=== PATIENT | female | born 1945 | race African-American/Black ===

== ENCOUNTER 2017-10-20 09:24 | Inpatient (IN) | payer OTHER ==
[~2017-10-20] VITALS: Ht 157.5 cm; Wt 44.7 kg
--- NOTE | ~2017-10-20 | P ---
[facility] Michelle Rodrí[place] [address] PROCEDURE REPORT Name: MATEO GARCIA Room #: 208-P ADM IN M.R.#: [id number] Admission: 10/20/17 Attend Phys: Sharan Frank MD Discharge: Date of : 43 Report #: [id number] THIS REPORT FOR: //name// CC: Castillo Aragon MD [facility] FAM unknown Karlos Frank DATE OF SERVICE: 10/24/2017 PROCEDURE PERFORMED: Upper endoscopy. HISTORY OF PRESENT ILLNESS: The patient is a 72-year-old female with a history of coronary artery disease, CVA, pacemaker and admitted on 10/20/2017 with chest pain. She was noted to have a hemoglobin of 9.0 on admission. She was taking aspirin and was on Coumadin as she has a mitral valve replacement. Her hemoglobin has been dropping from admission to 7.7 today, which was what it was yesterday. She has had no stools in the last 3 days. We have attempted Hemoccult testing, but again she has not had a bowel movement. She denies any obvious bright red blood per rectum or melena. She was taking Protonix at home prior to this admission. Denies any hematemesis. Plan is for upper endoscopy. Last colonoscopy per her daughter was approximately 5-8 years ago and reportedly negative. I do not have a copy of these results. DESCRIPTION OF PROCEDURE: The risks and benefits of the procedure were explained to the patient, those risks including but not limited to bleeding, perforation, and the risk of sedation. She understood these risks and gave informed consent. Sedation was given using propofol per Anesthesia. Next, using a standard Olympus upper endoscope, the scope was placed in the patient's mouth and advanced under direct vision through the esophagus, stomach and into the second portion of the duodenum. The esophagus was normal throughout. 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 No evidence of esophagitis. There was a mild gastritis in the gastric body. Again, unable to take biopsies for H. pylori, but no evidence of blood, ulcerations or erosions. The pylorus was normal and patent. The duodenal bulb, first and second portion were all normal. The scope was then withdrawn and the procedure terminated. The patient tolerated the procedure well. IMPRESSION: 1. Mild gastritis. 2. 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 3. Otherwise, normal upper endoscopy. RECOMMENDATIONS: We will discuss options with Dr. Aragon, likely not proceed with colonoscopy at this time. We will still await stool Hemoccult testing. [address] [address] PROCEDURE REPORT Name: MATEO GARCIA Room #: 208-P [facility] IN M.R.#: [id number] Admission: 10/20/17 Attend Phys: Sharan Frank MD Discharge: Date of : 43 Report #: [id number] Continue PPI therapy and monitoring. Thank you for allowing me to participate in her care. <ELECTRONICALLY SIGNED> By: Otto Banerjee MD 10/24/172008 1206 1809 Otto Banerjee MD /nt
--- NOTE | ~2017-10-20 | HC ---
[facility] Michelle Rodrí[place] [address] CONSULTATION Name: RADHAMATEO Room #: 208-P ADM IN M.R.#: [id number] Admission: 10/20/17 Attend Phys: Sharan Frank MD Discharge: Date of : 43 Report #: [id number] THIS REPORT FOR: //name// CC: FAM unknown Sharan Frank REASON FOR CONSULTATION: Elevated creatinine. REASON FOR THE PRESENTATION: Chest pain. HISTORY OF PRESENT ILLNESS: A 72-year-old with extensive past medical history including coronary artery disease, sick sinus syndrome post permanent pacemaker, hypertension, and chronic kidney disease. She presented with chest pain, radiating to her left arm. No aggravating factors; however, the pain got relieved by morphine and nitroglycerin. I am not really sure about her previous medical history of coronary artery disease; however, it is mentioned that she does have coronary artery disease and had a mitral valve mechanical valve replacement. She is maintained on Coumadin. No nausea or vomiting. No lightheadedness. No shortness of breath. No fever or chills. On presentation to the Emergency Room yesterday, she was found to have an elevated troponin at 5.2 and was described as chronic kidney disease with a creatinine of 2.1 that had risen up to 2.4 this morning. Cardiac workup is being pursued. I am being asked to evaluate for her chronic kidney disease. The patient herself is not really sure if she has ever been told or diagnosed to have chronic kidney disease. Looking through her previous medical records and specifically back in 2014, she had creatinine values anywhere from 1.8-2. Her previous UAs or urinalysis in 2015 have revealed +1 protein. There is an abdominal CT that was done back in 03/2014 and this revealed dominant cyst arising from the right kidney with small bilateral renal calculi. PAST MEDICAL HISTORY: Extensive and includes the followin. Hypertension. 2. Chronic kidney disease. 3. Post mitral valve replacement. 4. Coronary artery disease. 5. Post pacemaker insertion. 6. Long-term anticoagulant. 7. Mitral regurgitation. 8. Left ventricular hypertrophy. 9. Cardiomyopathy with ejection fractions of around 40% back in 2014. 10. Gout. 11. Hypertension. 12. Dyslipidemia. PAST SURGICAL HISTORY: 1. Mitral valve prosthesis. 2. Pacemaker insertion. [facility] [address] [place] [address] CONSULTATION Name: MATEO GARCIA Room #: 208-P [facility] IN .R.#: [id number] Admission: 10/20/17 Attend Phys: Sharan Frank MD Discharge: Date of : 43 Report #: [id number] 3. Appendectomy 30 years ago. 4. Heart catheterization. FAMILY HISTORY: Significant for hypertension. No known chronic kidney disease in the family. MEDICATIONS: Aspirin, amlodipine, losartan, pantoprazole, carvedilol, hydrochlorothiazide, atorvastatin, hydralazine. SOCIAL HISTORY: She is a nonsmoker. No drug or alcohol abuse. REVIEW OF SYSTEMS: GENERAL: No fever or chills. CARDIOVASCULAR: As per the history of present illness. PULMONARY: No cough or hemoptysis. GASTROINTESTINAL: No nausea or vomiting. GENITOURINARY: No frequency, no urgency. MUSCULOSKELETAL: No back pain, no morning stiffness. SKIN: No rash or ulcerations. PHYSICAL EXAMINATION: GENERAL: She is alert, oriented, in no apparent distress. VITAL SIGNS: Blood pressure on presentation was extremely elevated at 217/90. This is down to 140/60 this morning. She is afebrile, temperature is 36.7, pulse rate is 71 and regular. HEAD AND NECK: No jugular venous distention. CHEST: Decreased air entry bilaterally, but no crackles present. CARDIOVASCULAR: Regular with no rub. ABDOMEN: Soft, nontender. LOWER EXTREMITIES: No edema. LABORATORY DATA: Laboratory values reviewed. Creatinine was up to 2.4 this morning from 2.1 yesterday. Troponin has peaked at 12.3 this morning. Hemoglobin is 8.3. INR is 2.3. There is no UA available. ASSESSMENT, IMPRESSION AND PLAN: 1. Chronic kidney disease. 2. Acute kidney injury with worsening of the creatinine due to the reduction in her blood pressure. 3. Status post mitral valve prosthesis. 4. Hypertension. 5. Hyperlipidemia. 6. She does have evidence of chronic kidney disease based on her previous values. She is now presenting with acute coronary syndrome symptoms. I would continue with the current medical care right now, including all of the appropriate medications for her coronary artery disease. The rise in the [facility] [address] [place] [address] CONSULTATION Name: MATEO GARCIA Room #: 208-P [facility] IN M.R.#: [id number] Admission: 10/20/17 Attend Phys: Sharan Frank MD Discharge: Date of : 43 Report #: [id number] creatinine is likely related to the drop in the blood pressure and the changes in the kidneys hemodynamics. I will initiate basic chronic kidney disease workup to evaluate her kidneys. 7. Strict input and output. 8. Avoid nephrotoxins. 9. The issue that will come up during this presentation is whether she is okay to proceed with the cardiac catheterization given her acute kidney injury and the possibility of contrast-induced nephropathy. I will discuss those with the Cardiology team. By: 0719 1311 Anne-Marie Vidal MD /nt
--- NOTE | ~2017-10-20 | HC ---
[facility] [place] [address] CONSULTATION Name: MATEO GARCIA Room #: 208-P ADM IN M.R.#: [id number] Admission: 10/20/17 Attend Phys: Sharan Frank MD Discharge: Date of : 43 Report #: [id number] THIS REPORT FOR: //name// CC: FAM unknown Sharan Frank DATE OF SERVICE: 10/25/2017 HISTORY OF PRESENT ILLNESS: This patient is a 72-year-old black female 10, para 10, menopausal for many years, though she cannot remember the exact age. She was admitted to the hospital on 10/20/2017 with symptoms of chest pain and a past medical history of stroke, coronary artery disease, mitral valve replacement, hypertension, hyperlipidemia, and pacemaker placement. Gynecology has been consulted due to her history of postmenopausal bleeding since late August of 2017, which began soon after she was restarted on anticoagulants for her mitral valve replacement history. She was seen in August at the [facility] and referred to the [facility], but has not been seen there. The patient denies any previous vaginal bleeding. Denies any abdominal or pelvic pain, change in bowel habits, abdominal distention. PAST MEDICAL HISTORY ALLERGIES: CODEINE causes HALLUCINATIONS. MEDICATIONS: Amlodipine, acetaminophen, aspirin, atorvastatin, carvedilol, docusate sodium, heparin, hydralazine, intravenous iron supplements, losartan, nitroglycerin, ondansetron, pantoprazole, polyethylene glycol, sertraline. MEDICAL ILLNESSES AND DISEASES: Severe anemia with a hemoglobin varying from 7.9-8.4 during this hospitalization, etiology uncertain, though the patient has a possible history of gastrointestinal bleed and a fairly good history of postmenopausal bleeding; history of mechanical mitral valve replacement; acute renal failure; history of cerebrovascular accident; history of non-ST elevated myocardial infarction; history of hypomagnesemia; history of gout; history of gastroesophageal reflux disease; history of congestive heart failure; history of hyperlipidemia. PAST SURGICAL HISTORY: Aortic valve replacement, mitral valve replacement, pacemaker, appendectomy. FAMILY HISTORY: Negative for carcinoma of the ovary or uterus or breast. SOCIAL HISTORY: Never smoker, nondrinker. REVIEW OF SYSTEMS: Noncontributory except as above. [address] [address] CONSULTATION Name: RADHAMATEO Room #: 208-P [facility] IN .R.#: [id number] Admission: 10/20/17 Attend Phys: Sharan Frank MD Discharge: Date of : 43 Report #: [id number] PHYSICAL EXAMINATION: GENERAL: Elderly black female in no acute distress, alert and oriented x 2. ABDOMEN: Soft, flat, nondistended, no abdominal masses. GYNECOLOGICAL: Vulva normal. Vagina, no lesions. Cervix atrophic. Mild amount of dark maroon blood in the upper vagina. PELVIC: Uterus and adnexa are nonpalpable. IMAGING: Pelvic sonogram on 10/25/2017 showed a normal size uterus with a small partially calcified mass in the anterior uterus, most suggestive of a small degenerated fibroid measuring 8 x 9 mm diameter. No other uterine masses identified. The endometrial thickness was 6 mm with a tiny amount of fluid in the endometrial cavity. Neither ovary could be visualized. LABORATORY DATA: Comprehensive metabolic profile was remarkable for BUN of 24, creatinine of 2.3, blood glucose of 111. Normal liver function tests. CBC showed a white count of 5.1; hemoglobin of 7.7; hematocrit of 23.8; platelet count 296,000. Most recent PT, PTT on 10/24/2017 was 16.7 and 49.1 with an INR of 1.6. On admission, serum iron was low at 28 and percent saturation was 16%. The thickened endometrium found on ultrasound scan was discussed with the patient and her family and it is significance relation to postmenopausal bleeding also discussed. Endometrial sampling at bedside with an endometrial biopsy was recommended with an alternative of going to the operating room for a D and C, hysteroscopy. Risks of both procedures were reviewed with the patient including hemorrhage, infection, uterine perforation. The patient opted to have endometrial biopsy performed at bedside. PROCEDURE: Endometrial biopsy. PROCEDURE IN DETAIL: The patient was placed supine in her bed on top of an inverted bedpan. Speculum was placed in the vagina. The cervix was visualized and then prepped with Betadine and an Endocell endometrial sampler was attempted to be placed through the cervix, but could not bypass the cervix due to stenosis. The cervix was then infiltrated with 5 mL of 1% lidocaine on its anterior lip. After 2 minutes, the anterior lip was then grasped using a single-tooth tenaculum and the Endocell endometrial sampler replaced. It could only penetrate to a depth of 3 cm. A uterine sound was then passed in an attempt to bypass the internal os and it did reach a depth of 7 cm. The Endocell sampler was then placed through that path and no tissue was removed. At this point, the procedure was terminated as all instruments were removed. Hemostasis was observed. The counts were correct. ASSESSMENT AND PLAN: 1. Postmenopausal bleeding and thickened endometrium in a 72-year-old black female. This bleeding may have been prompted by the patient's anticoagulated [facility] [address] [place] [address] CONSULTATION Name: MATEO GARCIA Room #: 208-P [facility] IN ..#: [id number] Admission: 10/20/17 Attend Phys: Sharan Frank MD Discharge: Date of : 43 Report #: [id number] status this past month. 2. The patient has a history of cardiac disease and chest pain and is scheduled for a stress test tomorrow. Following that test, if the patient is stable with medical clearance, would recommend investigating the endometrial cavity further with a dilatation and curettage/hysteroscopy and to complete sampling of the endometrium to rule out adenocarcinoma or adenomatous hyperplasia. <ELECTRONICALLY SIGNED> By: Franky Plaza MD 10/26/17 1612 1730 0405 Franky Plaza MD /nt
--- NOTE | ~2017-10-20 | EKG ---
[address] [address] ELECTROCARDIOGRAM REPORT Name: RADHAMATEO Room #: 208-P ADM IN M.R.#: [id number] Admission: 10/20/17 Attend Phys: Sharan Frank MD Discharge: Date of : 43 Report #: [id number] THIS REPORT FOR: //name// [facility] Test Date: 2017-10-21 Test Time: 07:06:12 Pat Name: MATEO GARCIA Department: Room: 208 P Gender: F Pump Service Supervisor: MARLYN : 1945 Requested By: Leeanna Mancuso Order Number: [id number] MD: Castillo Aragon Measurements Intervals [place] Rate: 76 P: 21 NC: 177 QRS: -72 QRSD: 136 T: 97 QT: 466 QTc: 525 Interpretive Statements Atrial-sensed ventricular-paced rhythm No further analysis attempted due to paced rhythm Compared to ECG 10/20/2017 09:36:09 No significant changes Electronically Signed On 10-21-2017 8:14:54 CDT by Castillo Aragon [email or web address] <ELECTRONICALLY SIGNED> By: Castillo Aragon MD, [facility] 10/21/17 0814 0706 Castillo Aragon MD, [facility] /EPI
--- NOTE | ~2017-10-20 | 2DMMODE ---
[facility] [place] [address] 2 D/M-MODE ECHOCARDIOGRAM Name: MATEO GARCIA Room #: 170-3 ADM IN .R.#: [id number] Admission: 10/20/17 Attend Phys: Sharan Frank, Discharge: Date of : 41 Date of Service: 10/20/17 1417 Report #: [id number] THIS REPORT FOR: //name// APPROVED REPORT Study performed: 10/20/2017 13:21:21 EXAM: Comprehensive 2D, Doppler, and color-flow Echocardiogram Patient Location: ER Status: routine BSA: 1.65 HR: 64 bpm BP: 166/83 mmHg Other Information Study Quality: Good/limited mobility Indications Chest pain. Hx: Pacemaker, prosthetic mitral valve 2D Dimensions RVDd: 43.23 mm LVEF(%): 50.44 (>50%) IVSd: 18.62 (7-11mm) LVOT Diam: 18.85 (18-24mm) LVDd: 39.28 mm PWd: 20.03 (7-11mm) Ascending Ao: 33.47 (22-36mm) LVDs: 29.37 (25-40mm) Aortic Root: 36.15 mm Agrawal's LVEF: 50.44 % Volumes Left Atrial Volume (Systole) Single Plane 4CH: 25.37 mL Aortic Valve AoV Peak Yusef.: 1.72 m/s AO Peak Gr.: 11.81 mmHg LVOT Max P.43 mmHg LVOT Max V: 1.05 m/s CHRISTIE Vmax: 1.71 cm2 Mitral Valve MV Decel. Time: 269.45 ms MV PHT: 78.14 ms Pulmonary Valve [facility] [address] [place] [address] 2 D/M-MODE ECHOCARDIOGRAM Name: MATEO GARCIA Room #: 170-3 [facility] IN [facility].#: [id number] Admission: 10/20/17 Attend Phys: Sharan Frank, Discharge: Date of : 41 Date of Service: 10/20/17 1417 Report #: [id number] PV Peak Yusef.: 1.34 m/s PV Peak Gr.: 7.15 mmHg Tricuspid Valve TR Peak Yusef.: 2.64 m/s RAP Estimate: 5.00 mmHg TR Peak Gr.: 27.83 mmHg PA Pressure: 33.00 mmHg Left Ventricle The left ventricle is normal size. Severe concentric left ventricular hypertrophy. Left ventricular systolic function is normal. LVEF is 55%. This study is not technically sufficient to allow evaluation of the LV diastolic function. Right Ventricle The right ventricle is normal size. The right ventricular systolic function is normal. Pacemaker lead is present in the right ventricle. Atria The left atrium size is normal. The right atrium size is normal. Aortic Valve The Aortic valve is mildly sclerotic. Mild aortic regurgitation. There is no aortic valvular stenosis. Mitral Valve There is a mechanical mitral valve with a mean pressure gradient of 3mmHg. Mild mitral regurgitation. Tricuspid Valve The tricuspid valve is normal in structure. Mild to moderate tricuspid regurgitation. Estimated PAP is 30-35mmHg. Pulmonic Valve The pulmonary valve is normal in structure. Trace to mild pulmonic regurgitation. Great Vessels The aortic root is normal in size. The ascending aorta is normal in size. IVC is normal in size and collapses >50% with inspiration. Pericardium Small posterior pericardial fluid noted. <Conclusion> [facility] [address] [place] [address] 2 D/M-MODE ECHOCARDIOGRAM Name: MATEO GARCIA Vince Room #: 170-3 [facility] IN ..#: [id number] Admission: 10/20/17 Attend Phys: Sharan Frank, Discharge: Date of : 41 Date of Service: 10/20/17 1417 Report #: [id number] The left ventricle is normal size. Severe concentric left ventricular hypertrophy. Left ventricular systolic function is normal. The right ventricle is normal size. The left atrium size is normal. Mild aortic regurgitation. There is a mechanical mitral valve with a mean pressure gradient of 3mmHg. Mild mitral regurgitation. Mild to moderate tricuspid regurgitation. Estimated PAP is 30-35mmHg. <ELECTRONICALLY SIGNED> By: Karlos Cummings MD 10/20/17 1417 1417 1417 Karlos Cummings MD /INF
--- NOTE | ~2017-10-20 | EKG ---
[address] [place] [address] ELECTROCARDIOGRAM REPORT Name: RADHAMATEO Room #: 208-P [facility] IN M.R.#: [id number] Admission: 10/20/17 Attend Phys: Sharan Frank MD Discharge: Date of : 41 Report #: [id number] THIS REPORT FOR: //name// [facility] ED Test Date: 2017-10-20 Test Time: 09:36:09 Pat Name: MATEO GARCIA Department: Room: Gender: F Bedspread Seamer: [facility] : 1945 Requested By: Ion Springer Order Number: [id number] MD: Castillo Aragon Measurements Intervals [place] Rate: 67 P: 96 CO: 156 QRS: -65 QRSD: 149 T: 98 QT: 499 QTc: 527 Interpretive Statements Atrial-sensed ventricular-paced rhythm No further analysis attempted due to paced rhythm Compared to ECG 04/01/2014 09:59:35 No significant change was found Electronically Signed On 10-20-2017 16:51:38 CDT by Castillo Aragon [email or web address] <ELECTRONICALLY SIGNED> By: Castillo Aragon MD, [facility] 10/20/17 1651 0936 0936 Castillo Aragon MD, [facility] /EPI
[~2017-10-20 09:24] MED LIST: ALLOPURINOL 10100 M1 PO; AMLODIPINE BESY10 MG PO; ASPIR 8181 MG PO; COLACE100 MG PO; COUMADIN 5 MG TA5 M1 PO; COZAAR 50 MG TA50 M2 PO; COZAAR100 MG PO; CRESTOR10 MG PO; CRESTOR40 MG PO; ENOXAPARIN60 MG/0.1 SUBQ; FERREX 150 FORT1 CAP PO; HYDRALAZINE 2525 MG PO; HYDRALAZINE HC100 MG PO; MEDROLDOSEPACK PO; PLAVIX 75 MG TA75 M1 PO; PROTONIX40 M1 PO; TOPROL XL100 MG PO; TOPROL XL200 MG PO; TYLENOL325 MG PO
[2017-10-20 09:25] VITALS: BP 140/120
[2017-10-20 11:16] LABS: ABSOLUTE NEUTROPHILS 4.2 thou/uL (1.4-8.2); BASOPHILS 1.6 % (0.0-2.0); EOSINOPHILS 2.7 % (0.0-3.0); HEMATOCRIT 27.4 % (37.0-47.0); LYMPHOCYTES 17.9 % (24.0-44.0); MCH 27.8 pg (26.0-34.0); MCHC 32.8 g/dL (28.0-37.0); MCV 84.8 fL (80.0-100.0); MONOCYTES 7.6 % (1.0-8.0); PLATELET COUNT 351 thou/uL (150-400); POLYS 70.2 % (36.0-66.0); RBC 3.23 mil/uL (4.20-5.00); RDW 17.3 % (10.5-14.5)
[2017-10-20 11:32] LABS: INR 2.3; PROTIME 23.2 Seconds (9.3-11.4)
[2017-10-20 11:34] LABS: CALCIUM 9.6 mg/dL (8.5-10.1); CREATININE 2.1 mg/dL (0.6-1.0); POTASSIUM 4.2 mmol/L (3.5-5.1)
[2017-10-20 11:49] LABS: ALBUMIN 3.3 g/dL (3.4-5.0); MAGNESIUM 1.5 mg/dL (1.8-2.4); TOTAL BILIRUBIN 0.3 mg/dL (<0.1-1.0); TOTAL PROTEIN 8.3 g/dL (6.4-8.2)
[2017-10-20 11:52] LABS: TROPONIN-I 2.3 ng/mL (<0.06)
[2017-10-20] MEDS ORDERED: COREG6.25 MG PO (12:01)
[2017-10-20] MEDS ORDERED: LIPITOR80 MG PO (12:01)
[2017-10-20] MEDS ORDERED: HYDROCHLOROTHIA25 M2 PO (12:01)
[2017-10-20] MEDS ORDERED: ZOLOFT25 MG PO (12:01)
[2017-10-20] MEDS ORDERED: HYDRALAZINE 2525 MG PO (12:02)
[2017-10-20] MEDS ORDERED: ALLOPURINOL 10100 M1 PO (12:02)
[2017-10-20 13:18] LABS: CHOLESTEROL 177 mg/dL (<200); HDL CHOLESTEROL 43 mg/dL (>40); LDL CHOLESTEROL 119 mg/dL (<100); TC:HDL 4.1 Ratio (Not establshd); TRIGLYCERIDE 76 mg/dL (<150); VLDL 15 mg/dL (<40)
[2017-10-20 13:51] VITALS: BP 166/83
[2017-10-20 14:30] LABS: ALBUMIN 3.3 g/dL (3.4-5.0); TOTAL PROTEIN 8.5 g/dL (6.4-8.2)
[2017-10-20 14:53] VITALS: BP 165/76
[2017-10-20 14:54] LABS: TSH 2.123 uIU/mL (0.358-3.740)
[2017-10-20 15:00] VITALS: BP 175/89
[2017-10-20 19:33] VITALS: BP 147/56
[2017-10-21 03:10] VITALS: BP 143/61
[2017-10-21 06:32] LABS: HEMATOCRIT 25.7 % (37.0-47.0); HEMOGLOBIN 8.3 gm/dL (12.0-15.0); MCH 27.9 pg (26.0-34.0); MCHC 32.4 g/dL (28.0-37.0); MCV 86.1 fL (80.0-100.0); RBC 2.99 mil/uL (4.20-5.00); RDW 17.2 % (10.5-14.5); WBC 5.3 thou/uL (4.0-11.0)
[2017-10-21 06:41] LABS: CALCIUM 9.5 mg/dL (8.5-10.1); CREATININE 2.4 mg/dL (0.6-1.0); MAGNESIUM 2.3 mg/dL (1.8-2.4); POTASSIUM 4.5 mmol/L (3.5-5.1)
[2017-10-21 07:44] VITALS: BP 140/56
[2017-10-21 08:46] LABS: INR 2.1; PROTIME 20.4 Seconds (9.3-11.4)
[2017-10-21 11:10] VITALS: BP 139/57
[2017-10-21 14:02] LABS: % SATURATION 16 % (20-39); IRON 28 ug/dL (50-170); TIBC 180 ug/dL (250-450)
[2017-10-21 16:04] VITALS: BP 160/61
[2017-10-21 19:32] VITALS: BP 151/69
[2017-10-21 22:23] LABS: URINE BILIRUBIN NEGATIVE (Negative); URINE BLOOD NEGATIVE (Negative); URINE CLARITY CLEAR; URINE COLOR YELLOW; URINE GLUCOSE-RANDOM* NEGATIVE (Negative); URINE KETONES NEGATIVE (Negative); URINE LEUKOCYTES NEGATIVE (Negative); URINE NITRITE NEGATIVE (Negative); URINE PROTEIN (DIPSTICK) NEGATIVE (Negative); URINE UROBILINOGEN 0.2 E.U./dl (0.2-1.0)
[2017-10-22 03:40] VITALS: BP 157/71
[2017-10-22 04:30] LABS: CALCIUM 8.7 mg/dL (8.5-10.1); CREATININE 2.5 mg/dL (0.6-1.0); POTASSIUM 4.3 mmol/L (3.5-5.1)
[2017-10-22 04:38] LABS: ALBUMIN 2.7 g/dL (3.4-5.0); CALCIUM 8.8 mg/dL (8.5-10.1); CREATININE 2.5 mg/dL (0.6-1.0); PHOSPHORUS 3.2 mg/dL (2.5-4.9); POTASSIUM 4.5 mmol/L (3.5-5.1)
[2017-10-22 05:12] LABS: HEMATOCRIT 23.9 % (37.0-47.0); HEMOGLOBIN 7.9 gm/dL (12.0-15.0); MCH 28.3 pg (26.0-34.0); MCV 85.8 fL (80.0-100.0); RBC 2.78 mil/uL (4.20-5.00); WBC 5.5 thou/uL (4.0-11.0)
[2017-10-22 06:57] LABS: INR 1.7; PROTIME 17.7 Seconds (9.3-11.4)
[2017-10-22 07:38] VITALS: BP 145/79
[2017-10-22 11:39] VITALS: BP 157/81
[2017-10-22 19:33] VITALS: BP 172/60
[2017-10-23 03:30] VITALS: BP 161/51
[2017-10-23 07:07] VITALS: BP 148/61
[2017-10-23 08:14] LABS: ABSOLUTE NEUTROPHILS 3.4 thou/uL (1.4-8.2); BASOPHILS 0.9 % (0.0-2.0); EOSINOPHILS 3.6 % (0.0-3.0); HEMATOCRIT 23.5 % (37.0-47.0); HEMOGLOBIN 7.7 gm/dL (12.0-15.0); LYMPHOCYTES 20.3 % (24.0-44.0); MCH 28.1 pg (26.0-34.0); MCHC 32.8 g/dL (28.0-37.0); MCV 85.8 fL (80.0-100.0); MONOCYTES 9.4 % (1.0-8.0); PLATELET COUNT 279 thou/uL (150-400); POLYS 65.8 % (36.0-66.0); RBC 2.74 mil/uL (4.20-5.00); RDW 17.3 % (10.5-14.5); WBC 5.2 thou/uL (4.0-11.0)
[2017-10-23 08:34] LABS: ALBUMIN 2.7 g/dL (3.4-5.0); CALCIUM 9.2 mg/dL (8.5-10.1); CREATININE 2.4 mg/dL (0.6-1.0); PHOSPHORUS 3.6 mg/dL (2.5-4.9); POTASSIUM 4.5 mmol/L (3.5-5.1)
[2017-10-23 08:43] LABS: INR 1.9; PROTIME 18.1 Seconds (9.3-11.4)
[2017-10-23 08:44] LABS: APTT 54.4 Seconds (24.5-32.8)
[2017-10-23 11:15] VITALS: BP 152/73
[2017-10-23 15:36] VITALS: BP 140/51
[2017-10-23 19:28] VITALS: BP 182/84
[2017-10-23 23:58] VITALS: BP 154/61
[2017-10-24 04:34] VITALS: BP 157/86
[2017-10-24 05:07] LABS: HEMATOCRIT 23.8 % (37.0-47.0); HEMOGLOBIN 7.7 gm/dL (12.0-15.0); MCH 27.7 pg (26.0-34.0); MCHC 32.5 g/dL (28.0-37.0); MCV 85.4 fL (80.0-100.0); RBC 2.79 mil/uL (4.20-5.00); RDW 17.2 % (10.5-14.5); WBC 5.1 thou/uL (4.0-11.0)
[2017-10-24 05:14] LABS: APTT 49.1 Seconds (24.5-32.8); INR 1.6; PROTIME 16.7 Seconds (9.3-11.4)
[2017-10-24 05:22] LABS: ALBUMIN 2.7 g/dL (3.4-5.0); CALCIUM 9.3 mg/dL (8.5-10.1); CREATININE 2.2 mg/dL (0.6-1.0); PHOSPHORUS 3.5 mg/dL (2.5-4.9); POTASSIUM 4.8 mmol/L (3.5-5.1)
[2017-10-24 15:03] VITALS: BP 161/48
[2017-10-24 21:17] VITALS: BP 147/51
[2017-10-25 00:36] VITALS: BP 161/55
[2017-10-25 01:09] LABS: ALBUMIN 2.7 g/dL (3.4-5.0); CALCIUM 9.1 mg/dL (8.5-10.1); CREATININE 2.3 mg/dL (0.6-1.0); PHOSPHORUS 3.1 mg/dL (2.5-4.9); POTASSIUM 5.1 mmol/L (3.5-5.1)
[2017-10-25 05:49] VITALS: BP 139/46
[2017-10-25 09:24] VITALS: BP 137/58
[2017-10-25 09:39] LABS: HEMATOCRIT 25.9 % (37.0-47.0); HEMOGLOBIN 8.4 gm/dL (12.0-15.0); MCH 27.6 pg (26.0-34.0); MCHC 32.3 g/dL (28.0-37.0); MCV 85.6 fL (80.0-100.0); RBC 3.02 mil/uL (4.20-5.00); WBC 5.1 thou/uL (4.0-11.0)
[2017-10-25 10:32] LABS: CALCIUM 9.3 mg/dL (8.5-10.1); CREATININE 2.4 mg/dL (0.6-1.0); POTASSIUM 4.8 mmol/L (3.5-5.1); TOTAL BILIRUBIN 0.3 mg/dL (<0.1-1.0); TOTAL PROTEIN 7.1 g/dL (6.4-8.2)
[2017-10-25 11:22] VITALS: BP 135/53
[2017-10-25 16:05] VITALS: BP 142/72
[2017-10-25 19:41] VITALS: BP 163/60
[2017-10-26 04:07] LABS: HEMOGLOBIN 7.5 gm/dL (12.0-15.0); MCHC 32.4 g/dL (28.0-37.0); MCV 86.3 fL (80.0-100.0); RBC 2.67 mil/uL (4.20-5.00); RDW 17.2 % (10.5-14.5); WBC 5.6 thou/uL (4.0-11.0)
[2017-10-26 04:12] LABS: APTT 65.4 Seconds (24.5-32.8); INR 1.3; PROTIME 13.1 Seconds (9.3-11.4)
[2017-10-26 04:14] LABS: ALBUMIN 2.7 g/dL (3.4-5.0); CREATININE 2.4 mg/dL (0.6-1.0); PHOSPHORUS 3.5 mg/dL (2.5-4.9); POTASSIUM 4.9 mmol/L (3.5-5.1)
[2017-10-26 04:54] VITALS: BP 145/57
[2017-10-26 07:52] VITALS: BP 150/64
[2017-10-26 11:38] VITALS: BP 155/61
[2017-10-26 16:35] VITALS: BP 174/65
[2017-10-26 19:35] VITALS: BP 160/60
[2017-10-27 00:36] VITALS: BP 145/62
[2017-10-27 04:22] LABS: INR 1.2; PROTIME 11.9 Seconds (9.3-11.4)
[2017-10-27 04:28] LABS: ALBUMIN 2.7 g/dL (3.4-5.0); CALCIUM 8.9 mg/dL (8.5-10.1); CREATININE 2.5 mg/dL (0.6-1.0); PHOSPHORUS 3.7 mg/dL (2.5-4.9); POTASSIUM 4.5 mmol/L (3.5-5.1)
[2017-10-27 04:30] VITALS: BP 144/51
[2017-10-27 04:39] LABS: HEMATOCRIT 23.6 % (37.0-47.0); HEMOGLOBIN 7.7 gm/dL (12.0-15.0); MCH 28.2 pg (26.0-34.0); MCHC 32.7 g/dL (28.0-37.0); MCV 86.4 fL (80.0-100.0); RBC 2.73 mil/uL (4.20-5.00); RDW 16.7 % (10.5-14.5); WBC 6.1 thou/uL (4.0-11.0)
[2017-10-27 07:58] VITALS: BP 142/46
[2017-10-27 10:37] VITALS: BP 142/46
[2017-10-27] MEDS ORDERED: COUMADIN 5 MG TA5 M1 PO (11:47)
[2017-10-27] MEDS ORDERED: ENOXAPARIN40 MG/0.1 SUBQ (11:47)
[2017-10-27] MEDS ORDERED: IMDUR 30 MG TAB30 M1 PO (11:48)
[2017-10-27] MEDS ORDERED: CARVEDILOL12.5 MG PO (11:48)
[2017-10-27 11:57] VITALS: BP 132/64
== END 2017-10-27 15:47 | disposition home health service (06) | DRG 987 ==
LOC: ER 09:24 → 2N 12:01 → EROBS 12:01 → 2N 15:41
PROVIDERS: Emergency Medicine; Hospitalist; Internal Medicine; Internal Medicine Cardiovascular Disease; Nurse Practitioner; Nurse Practitioner Adult Health; Nurse Practitioner Gerontology
PROC: 0DJ08ZZ Inspection of Upper Intestinal Tract, Via Natural or Artificial Opening Endoscopic (ICD-10-PCS; principal; 2017-10-24)
PROC: 0UDB7ZX Extraction of Endometrium, Via Natural or Artificial Opening, Diagnostic (ICD-10-PCS; principal; 2017-10-24)
DX: I21.4 Non-ST elevation (NSTEMI) myocardial infarction (principal); E43 Unspecified severe protein-calorie malnutrition; N17.0 Acute kidney failure with tubular necrosis; I42.9 Cardiomyopathy, unspecified; I13.0 Hypertensive heart and chronic kidney disease with heart failure and stage 1 through stage 4 chronic kidney disease, or unspecified chronic kidney disease; K92.2 Gastrointestinal hemorrhage, unspecified; E78.5 Hyperlipidemia, unspecified; M10.9 Gout, unspecified; N18.9 Chronic kidney disease, unspecified; K21.9 Gastro-esophageal reflux disease without esophagitis; I50.9 Heart failure, unspecified; E83.42 Hypomagnesemia; K29.70 Gastritis, unspecified, without bleeding; F03.90 Unspecified dementia, unspecified severity, without behavioral disturbance, psychotic disturbance, mood disturbance, and anxiety; N95.0 Postmenopausal bleeding; D63.8 Anemia in other chronic diseases classified elsewhere; F01.50 Vascular dementia, unspecified severity, without behavioral disturbance, psychotic disturbance, mood disturbance, and anxiety; N93.9 Abnormal uterine and vaginal bleeding, unspecified; I25.119 Atherosclerotic heart disease of native coronary artery with unspecified angina pectoris; Z95.2 Presence of prosthetic heart valve; Z95.0 Presence of cardiac pacemaker; Z79.82 Long term (current) use of aspirin; Z79.899 Other long term (current) drug therapy; Z90.49 Acquired absence of other specified parts of digestive tract; I25.2 Old myocardial infarction; Z88.6 Allergy status to analgesic agent; Z79.01 Long term (current) use of anticoagulants; Z82.49 Family history of ischemic heart disease and other diseases of the circulatory system
CPT/HCPCS: 10081; 62110; 62900; 70005

== ENCOUNTER 2018-09-21 13:39 | Inpatient (IN) | payer OTHER ==
[~2018-09-21] VITALS: Ht 165.1 cm; Wt 51.7 kg
--- NOTE | ~2018-09-21 | HC ---
[facility] [place] [address] CONSULTATION Name: RADHAMATEO DANNY Room #: 216-P ADM IN M.R.#: [id number] Admission: 09/21/18 ������������������ Attend Phys: Dionisio Paiz MD Discharge: ������������������ Date of : 43 Report #: [id number] THIS REPORT FOR: //name// CC: FAM unknown Dionisio Paiz DATE OF SERVICE: 09/25/2018 HISTORY OF PRESENT ILLNESS: The patient is a 73-year-old -Togolese female, who was admitted with anemia, failure to thrive, diagnosed with metabolic encephalopathy. She was noted to have GI bleed. Gastroenterology has been involved. She had a positive stool occult, hemoglobin is 8.9. Last EGD done on 09/2017 showed gastritis and possible Carrion's. Plan is to monitor hemoglobin, transfuse to keep above 7. She wants colonoscopy at some point in time. The patient also has a history of a recent CVA approximately 3 months ago with residual right hemiparesis. She has had a functional decline from her premorbid status and we are seeing her in rehabilitation medicine consultation. PAST MEDICAL HISTORY: Includes mitral valve replacement, pacemaker, appendectomy, hypertension, hyperlipidemia, anemia, gout, UT, left bundle branch block, GERD, CHF, left CVA approximately 3 months ago with residual right upper and lower extremity weakness, chronic kidney disease, and vascular dementia. ALLERGIES: CODEINE. HABITS: No history of tobacco or alcohol abuse. SOCIAL HISTORY: Son, daughter, and a couple of grandchildren live with the patient. She utilized a quad cane. She is occasionally home alone. She was noted to have weakness with some dragging of that right lower extremity. She live in a house, 2 steps in. REVIEW OF SYSTEMS: No current complaints of chest pain, shortness of breath, or abdominal discomfort. PHYSICAL EXAMINATION: GENERAL: This is a 73-year-old -Togolese female, in no obvious distress. The patient is alert. VITAL SIGNS: Last recorded temperature is 98.5, pulse is 59, respirations 17, and blood pressure is 157/97. HEENT: Appeared to be benign. NEUROLOGIC: Facies appeared to be symmetric. She follows basic 1 step commands. She has functional range of motion, strength of left upper and left lower extremity. Right upper extremity, she has some definite weakness greater at a 3-/5 with some decreased coordination. Right lower extremity is grade 3+/5. Appears to have reasonably intact sensation in bilateral upper and lower [facility] [address] [place] [address] CONSULTATION Name: MATEO GARCIA Room #: 216-P [facility] IN .R.#: [id number] Admission: 09/21/18 ������������������ Attend Phys: Dionisio Paiz MD Discharge: ������������������ Date of : 43 Report #: [id number] extremities. Sit to stand is min assist, gait 140 feet min assist with a front-wheeled walker. She does have some definite latency to her responses. We will follow basic 1 step commands. ASSESSMENT: A 73-year-old -Togolese female with the following problem list: 1. Metabolic encephalopathy. 2. Right-sided hemiparesis. 3. Recent cerebrovascular accident approximately 3 months ago with weakness involving right upper and right lower extremity. 4. Mild dysarthria. 5. Some difficulty with right foot clearance during gait. 6. Gastrointestinal bleed. 7. Acute renal insufficiency superimposed on chronic kidney disease. 8. Mechanical mitral valve. 9. Coagulopathy. 10. Implantable cardiac defibrillator. 11. Prior history of some dementia, nevertheless living in the home environment. PLAN: Therapies are continuing to work with her on improving her functional mobility with ADLs and mobility. Speech therapy notes some dysphagia and she is on a pureed diet. Insurance will need to be checked regarding rehab therapy options. ��������������������������������������������� ���������������������������������������� By: ��������������������������������������������� 1158 0023 Adryan Moyer MD /PMT
--- NOTE | ~2018-09-21 | HC ---
[facility] [place] [address] [address] CONSULTATION Name: MATEO GARCIA Room #: 216-P ADM IN M.R.#: [id number] Admission: 09/21/18 ������������������ Attend Phys: Dionisio Paiz MD Discharge: ������������������ Date of : 43 Report #: [id number] THIS REPORT FOR: //name// CC: FAM unknown Dionisio Paiz NEPHROLOGY CONSULTATION ATTENDING PHYSICIAN: Dr. Paiz REASON FOR CONSULTATION: Chronic kidney disease. HISTORY OF PRESENT ILLNESS: The patient followed at [facility] with chronic kidney disease and followed in the Nephrology Clinic there. She has had increasing trouble of late with nausea and vomiting, increased weakness and was taken to the hospital. 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 CURRENT MEDICATIONS: Listed as allopurinol 100 mg daily, amlodipine 10 mg daily, aspirin 81 mg daily, Lipitor 80 mg daily, carvedilol 12.5 mg b.i.d., hydralazine 50 mg t.i.d., losartan 50 mg daily, Protonix 40 mg daily, Zoloft 25 mg daily, sodium bicarbonate 650 mg t.i.d. and Coumadin. FAMILY HISTORY: Negative for renal disease. SOCIAL HISTORY: Lives with her son. No cigarettes or alcohol. REVIEW OF SYSTEMS: Taken with the help of one of her daughters. EYES: Vision has been okay. ENT: She swallows okay, but she has been vomiting of late. ENDOCRINE: No diabetes or thyroid disease. RESPIRATORY: Not been short-winded. CARDIAC: No chest pain or recent palpitations. GASTROINTESTINAL: She has had the nausea and vomiting. GENITOURINARY: No dysuria or hematuria. PSYCHIATRIC: Negative. NEUROLOGIC: She has had gradually increasing confusion, etc. PHYSICAL EXAMINATION: GENERAL: This is a chronically ill-appearing patient, in no acute distress. SKIN: Unremarkable. SKELETAL: Well developed, well nourished. HEENT: Extraocular movements are full. Vision intact. No scleral icterus. [facility] [address] [place] [address] CONSULTATION Name: MATEO GARCIA Room #: [address] [place] [address] IN .R.#: [id number] Admission: 09/21/18 ������������������ Attend Phys: Dionisio Paiz MD Discharge: ������������������ Date of : 43 Report #: [id number] Hearing intact. Mucous membranes moist. Tongue and buccal mucosa benign. NECK: Supple, no carotid bruits are heard. CHEST: Clear to auscultation. HEART: Regular. ABDOMEN: Soft, nontender, without bruits, masses or organomegaly. EXTREMITIES: Show no edema. NEUROLOGIC: Shows some weakness on the right side and the confusion, which apparently is chronic. LABORATORY DATA: Creatinine is 3, BUN is 37. I suspect this is close to her baseline. Sodium 140, potassium 4.4, chloride 104, bicarbonate 26. ASSESSMENT AND PLAN: Chronic kidney disease, likely hypertensive nephrosclerosis. Extensive workup is not warranted. She has received yet another renal sonogram, one of many that she has had, which shows somewhat atrophic chronic CKD type kidneys. According to the family, the patient is not interested and the family is not interested in dialysis treatment and conservative therapy is warranted. We will follow along. ��������������������������������������������� ���������������������������������������� By: ��������������������������������������������� 0946 0328 Saleem Dawson MD /nt
[~2018-09-21 13:39] MED LIST changes: +CARVEDILOL12.5 MG PO; +COREG6.25 MG PO; +ENOXAPARIN40 MG/0.1 SUBQ; +HYDROCHLOROTHIA25 M2 PO; +IMDUR 30 MG TAB30 M1 PO; +LIPITOR80 MG PO; +ZOLOFT25 MG PO
[2018-09-21 13:45] VITALS: BP 189/65
[2018-09-21] MEDS ORDERED: SODIUM BICARBO650 M3 PO (14:10)
[2018-09-21 14:41] LABS: HEMOGLOBIN 6.5 gm/dL (12.0-15.0); RDW 21.3 % (10.5-14.5); WBC 8.3 thou/uL (4.0-11.0)
[2018-09-21 14:43] LABS: ABSOLUTE NEUTROPHILS 6.7 thou/uL (1.4-8.2); BASOPHILS 0.6 % (0.0-2.0); EOSINOPHILS 0.4 % (0.0-3.0); LYMPHOCYTES 10.6 % (24.0-44.0); MCH 27.4 pg (26.0-34.0); MCHC 32.2 g/dL (28.0-37.0); MCV 85.1 fL (80.0-100.0); MONOCYTES 7.4 % (1.0-8.0); PLATELET COUNT 274 thou/uL (150-400); RBC 2.36 mil/uL (4.20-5.00)
[2018-09-21 14:51] LABS: CALCIUM 9.4 mg/dL (8.5-10.1); POTASSIUM 4.4 mmol/L (3.5-5.1)
[2018-09-21 14:56] LABS: ALBUMIN 2.9 g/dL (3.4-5.0); TOTAL BILIRUBIN 0.2 mg/dL (<0.1-1.0)
[2018-09-21 16:01] LABS: URINE BILIRUBIN NEGATIVE (Negative); URINE BLOOD NEGATIVE (Negative); URINE CLARITY CLEAR; URINE COLOR YELLOW; URINE GLUCOSE-RANDOM* NEGATIVE (Negative); URINE KETONES NEGATIVE (Negative); URINE LEUKOCYTES-REFLEX NEGATIVE (Negative); URINE NITRITE-REFLEX NEGATIVE (Negative); URINE PROTEIN (DIPSTICK) 1+ (Negative); URINE SPECIFIC GRAVITY 1.015 (1.005-1.035); URINE UROBILINOGEN 0.2 E.U./dl (0.2-1.0)
[2018-09-21 16:10] LABS: BACTERIA-REFLEX None Seen /HPF (None Seen); CASTS None Seen /LPF (None Seen); CRYSTALS None Seen /LPF (None Seen); SQUAMOUS 0-3 Few /LPF (0-3); URINE RBC 0-2 Rare /HPF (0-2); URINE WBC-REFLEX None Seen /HPF (0-5)
[2018-09-21 17:42] LABS: PROTIME 50.2 Seconds (9.3-11.4)
[2018-09-21 17:43] LABS: INR 4.9
[2018-09-21 18:28] VITALS: BP 174/83
[2018-09-21 18:55] LABS: URINE PROTEIN-RANDOM* 60.5 mg/dL (<11.9)
[2018-09-21 19:04] LABS: % SATURATION 22 % (20-39); IRON 42 ug/dL (50-170); TIBC 187 ug/dL (250-450)
[2018-09-21 19:53] VITALS: BP 184/59
[2018-09-21 20:19] VITALS: BP 190/53
[2018-09-21 21:44] VITALS: BP 184/66; BP 185/70; BP 192/66; BP 199/74
--- NOTE | 2018-09-21 23:15 | NUR ---
ADMIT:PT ADMITTED FROM ED WITH DIZZINESS AND ANEMIA.PT ARRIVED TO UNIT VIA CART.NO FAMILY PRESENT AT TIME OF ARRIVAL.PT A/OX3,WITH FORGETFULNESS,AX/O X3.C/O DIZZINESS AND PAIN TO RUQ ABDOMEN.ASSESSMENT DOCUMENTED.PT ORIENTED TO RM AND UNIT ACTIVITIES.VOICED UNDERSTANDING.REVIEWED ORDERS AND POC,PT INAGREEMENT.UNABLE TO SIGN D/T BEING UNABLE TO WRITE 2/2 CVA.VERBAL CONSENT GIVEN TO GIVE BLOOD TRANSFUSION.HX OF CVA THREE MONTHS AGO WITH RESIDUE TO SHAHBAZ AND TRUMAN LES,ESPECIALLY LEFT LEG.SKIN WITHOUT WOUNDS OR LESIONS.ON MONITOR V-PACED.RA W/O RESP DISTRESS.VOIDS VIA BEDPAN.BLOOD TRANSFUSING AT THIS TIME.PT TOLERATING.PAIN MEDS GIVEN.PT DENIES ANY OTHER CONCERNS.WILL CONTINUE TO MONITOR PER POC.
[2018-09-22] VITALS (8 sets, daily range): BP systolic 149–189; BP diastolic 46–72
[2018-09-22 04:05] LABS: IgA 548 mg/dL (64-422); IgG 2001 mg/dL (700-1600); IgM 81 mg/dL (26-217)
--- NOTE | 2018-09-22 04:53 | NUR ---
PT BEEN RESTING IN NO ACUTE DISTRESS.BLOOD PRESSURE ELEVATED,MEDS GIVEN PER ORDERS.2 UNITS OF PRBCs,TRANSFUSED,TOLERATED W/O ADVERSE REACTIONS.REMAINS AFEBRILE.VOIDS VIA BEDPAN.C/O PAIN TO RUQ THAT IS CONTROLLED WITH PAIN MEDS.NO NAUSEA OR EPISODE OF EMESIS NOTED OR REPORTED.WILL CONT TO MONITOR PER POC.
[2018-09-22 05:42] LABS: HEMATOCRIT 27.2 % (37.0-47.0); MCH 27.9 pg (26.0-34.0); MCHC 33.1 g/dL (28.0-37.0); MCV 84.5 fL (80.0-100.0); RBC 3.22 mil/uL (4.20-5.00); RDW 18.7 % (10.5-14.5); WBC 8.1 thou/uL (4.0-11.0)
--- NOTE | 2018-09-22 07:52 | EKG ---
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 : 1945 Requested By: Adam Pimentel Order Number: [id number] MD: Castillo Aragon Measurements Intervals [place] Rate: 66 P: 24 ND: 186 QRS: -51 QRSD: 136 T: 89 QT: 503 QTc: 528 Interpretive Statements Atrial-sensed ventricular-paced rhythm No further analysis attempted due to paced rhythm Compared to ECG 10/21/2017 07:06:12 No significant changes Electronically Signed On 09-22-2018 7:51:56 CDT by Castillo Aragon [email or web address] ��������������������������������������������� <ELECTRONICALLY SIGNED> ���������������������������������������� By: Castillo Aragon MD, [facility] ��������������������������������������������� 09/22/18 0751 [id number] Castillo Aragon MD, [facility] /EPI
--- NOTE | 2018-09-22 15:59 | NUR ---
FAXED REFERRAL TO [facility] PT HAD JUST FINISHED HH WITH THEM [employer]. SPOKE WITH INTAKE AND THEY RECEIVED INFO AND WILL ACCEPT AT RI. IF PT TO DISCHARGE OVER WEEKEND FAX TO [phone] AND CALL [phone].
--- NOTE | 2018-09-22 17:57 | NUR ---
PT CARE ASSUMED APPROX 0700. PT ALERT AND ORIENTED X3. DISORIENTED TO YEAR. DENIES SOA. VSS. C/O PAIN 5/10 LEFT FOOT PAIN. MEDICATED AND DENIES AT THIS TIME. DAUGHTER REPORTS TAKING PT OFF OF HER ALLOPURINOL. PT AND FAMILY EDUCATED THAT THIS MAY BE GOUT PAIN. NO S/S OF ACTIVE BLEEDING NOTED. PT UP TO CHAIR THIS MORNING. SLEPT MOST OF AFTERNOON INTO EVENING AFTER LUNCH. PT REPORTED FEELING MUCH BETTER AT THIS TIME AFTER LONG NAP. SUPPOSITORY GIVEN TO PROMOTE BM. PT ATTEMPTING TO HAVE BM AT THIS TIME. FAMILY AND PT RECEIVED CLINICAL UPDATE THIS SHIFT. ALL DENY QUESTIONS OR CONCERNS REGARDING POC AT THIS TIME. PT UP WITH MIN ASSIST, WALKER AND GAIT BELT. APPETITE GOOD FOR DINNER, POOR EARLIER THIS SHIFT. DIET CHANGED PER S/T. PT COMPLIANT. NO DISTRESS NOTED.
[2018-09-23] VITALS (7 sets, daily range): BP systolic 166–186; BP diastolic 59–80
--- NOTE | 2018-09-23 03:52 | NUR ---
ASSUMED PT'S CARE AT 1910; PT. ON BED; WATCHING TV; NO C/O PAIN; DURING ASSESSMENT PT. SLEEPING; ABLE TO WAKE EASILY AFTER CALLING NAME; ALERT TO PERSON & PLACE; NO C/O PAIN; AFTER MIDNIGHT PT. REQUESTED TO USE THE BED SIDE COMMODE; VOID; REQUESTED TO HAVE SCDs OFF; ABLE TO REST THROUGH THE NIGHT WITH EYES CLOSE; TURN FROM SIDE TO SIDE; ASSESSMENT CHARGED; FOLLOWING POC; MONITORING; WILL PASS ON REPORT.
[2018-09-23 06:06] LABS: HEMATOCRIT 26.2 % (37.0-47.0); HEMOGLOBIN 8.7 gm/dL (12.0-15.0); MCH 28.4 pg (26.0-34.0); MCHC 33.2 g/dL (28.0-37.0); MCV 85.4 fL (80.0-100.0); RBC 3.06 mil/uL (4.20-5.00); RDW 19.4 % (10.5-14.5)
[2018-09-23 06:16] LABS: CALCIUM 8.6 mg/dL (8.5-10.1); CREATININE 2.4 mg/dL (0.6-1.0); POTASSIUM 4.6 mmol/L (3.5-5.1)
[2018-09-23 06:20] LABS: INR 4.4; PROTIME 45.6 Seconds (9.3-11.4)
--- NOTE | 2018-09-23 07:56 | NUR ---
RECEIVED PT APPROX 0715. A/O. PILOT POINT. BP ELEVATED OTHERWISE VSS. DENIES PAIN THIS AM. NO NOTED SOA. NO NV. PT RESTING IN BED APPEARS COMFORTABLE. BED ALARM ON. WILL CONT. TO MONITOR.
[2018-09-24 03:54] VITALS: BP 134/39
[2018-09-24 05:14] LABS: HEMATOCRIT 26.8 % (37.0-47.0); HEMOGLOBIN 8.8 gm/dL (12.0-15.0); MCH 27.8 pg (26.0-34.0); MCHC 32.8 g/dL (28.0-37.0); MCV 84.9 fL (80.0-100.0); RBC 3.15 mil/uL (4.20-5.00); RDW 18.7 % (10.5-14.5); WBC 5.3 thou/uL (4.0-11.0)
[2018-09-24 05:27] LABS: PROTIME 28.6 Seconds (9.3-11.4)
--- NOTE | 2018-09-24 05:28 | NUR ---
RECEIVED PT'S CARE AT 1925; PT. OB BED; SLEEPING; AROUSABLE AFTER CALLING NAME; DURING ASSESSMENT PT. ALERT TO PERSON & PLACE; NO C/O PAIN; ABLE TO SWALLOW MEDICATION; SBP LESS THAN 160; AT MIDNIGHT C/O PAIN OVER R. SHOULDER; PRN PAIN MEDICATION GIVEN; RE-ASSESSMENT PT. SLEEPING; TURN FROM SIDE TO SIDE; CALLED APROPIATELY DURING THE NIGHT; SBP ON THE 130s EARLY ON THE DAY; ASSESSMENT CHARGED; FOLLOWING POC; MONITORING; WILL PASS ON REPORT.
[2018-09-24 05:31] LABS: ALBUMIN 2.4 g/dL (3.4-5.0); CALCIUM 8.7 mg/dL (8.5-10.1); CREATININE 2.4 mg/dL (0.6-1.0); PHOSPHORUS 3.1 mg/dL (2.5-4.9); POTASSIUM 4.7 mmol/L (3.5-5.1)
[2018-09-24 05:40] LABS: INR 2.8
[2018-09-24 07:30] VITALS: BP 170/67
[2018-09-24 11:31] VITALS: BP 138/52
[2018-09-24 14:42] VITALS: BP 147/58
[2018-09-24 15:28] VITALS: BP 154/61
--- NOTE | 2018-09-24 17:44 | NUR ---
ASSUMED CARE OF PT AT SHIFT CHANGE. ASSESSMENTS CHARTED. MEDS GIVEN PER MAY. PT ALERT AND ORIENTED, VSS, C/O PAIN IN SHOULDER, WILL ADMINISTER PO PAIN MEDS NEEDED. PT UP TO COMMODE X1 ASSIST TOLERATING WELL. O2 WNL ON ROOM AIR, DENIES SOB. NO C/O NAUSEA/VOMIT. APPETITE ADEQUATE. FAMILY VISITED WITH THROUGHOUT SHIFT. PT DENIES CONCERNS AT THIS TIME. WILL CONT TO MONITOR AND FOLLOW POC.
[2018-09-24 19:15] VITALS: BP 149/47
[2018-09-25] VITALS (7 sets, daily range): BP systolic 91–178; BP diastolic 37–97
[2018-09-25 03:53] LABS: INR 2.6; PROTIME 26.5 Seconds (9.3-11.4)
[2018-09-25 03:57] LABS: ALBUMIN 2.5 g/dL (3.4-5.0); CALCIUM 8.8 mg/dL (8.5-10.1); CREATININE 2.4 mg/dL (0.6-1.0); PHOSPHORUS 3.2 mg/dL (2.5-4.9); POTASSIUM 5.2 mmol/L (3.5-5.1)
[2018-09-25 04:17] LABS: HEMATOCRIT 27.2 % (37.0-47.0); HEMOGLOBIN 8.9 gm/dL (12.0-15.0); MCH 28.2 pg (26.0-34.0); MCHC 32.9 g/dL (28.0-37.0); MCV 85.8 fL (80.0-100.0); RBC 3.17 mil/uL (4.20-5.00); RDW 19.5 % (10.5-14.5); WBC 5.2 thou/uL (4.0-11.0)
--- NOTE | 2018-09-25 04:44 | NUR ---
ASSESSMENT CHARTED. VSS. PT C/O SHOULDER PAIN CONTROLED WITH PRN TYLENOL PER EMAR. DENIES N/V, CP, SOA. X1 TO COMMOD, X1 INCONTINENCE URINE. SLEEPING WELL THROUGHOUT NIGHT. WILL CONTINUE TO MONITOR AND WITH POC.
--- NOTE | 2018-09-25 17:23 | NUR ---
CM SPOKE WIHT PT'S DTR LEIGH AND INDICATED THAT THERAPY WAS INDICATEING POST ACUTE CARE STAY. 5N HAD BEEN CONSULTED AND INDICATED THAT ALTHOUGH PT DIDN'T HAVE A REHAB DIAGNOSIS THEY FELT [facility] WOULD BENEFIT. LEIGH INDICATED THEY WOULD BE RECEPTIVE TO 5N SEEKING AUTH BUT THAT THEY WEREN'T INTERESTED IN SKILLED POST ACUTE CARE STAY IF THEY WOULDN'T AUTH ACUTE. DTR INDICATED THAT THEY WERE INTERESTED IN 5N OR HOME WITH [facility]. 5N LIAISON SUBMITTED FOR AUTH BUT FOUNF OUT THAT PT WOULD HAVE A COPAY OF $1,364.00 PER DAY. CM TO NOTIFY FAMILY AND UPDATE [facility]. CM TO FOLLOW INDICATED WITH DC PLANNING.
--- NOTE | 2018-09-25 19:55 | NUR ---
ASSESSMENT CHARTED, PATIENT UP TO CHAIR IN THE MORNING, NO COMPLAINTS OF PAIN, WILL CONTINUE TO MONITOR.
[2018-09-26 00:18] VITALS: BP 167/52
--- NOTE | 2018-09-26 03:18 | NUR ---
ASSESSMENT CHARTED. VSS. PT DENIES PAIN, N/V, SOA, OR ANY CONCERN. A&OX4. CALLS APPROPRIATELY. X1 ASSIST TO BATHROOM, 1 FIRM BROWN BM NO SIGNS OF BLOOD. BEDBATH ORAL CARE DONE. SLEEPIND WELL, TURNS SELF. WILL CONTINUE TO MONITOR AND WITH POC.
[2018-09-26 03:43] LABS: HEMOGLOBIN 8.6 gm/dL (12.0-15.0); MCH 28.5 pg (26.0-34.0); MCHC 33.1 g/dL (28.0-37.0); MCV 86.1 fL (80.0-100.0); RBC 3.02 mil/uL (4.20-5.00); RDW 19.4 % (10.5-14.5); WBC 5.9 thou/uL (4.0-11.0)
[2018-09-26 05:29] VITALS: BP 183/49
[2018-09-26 05:50] VITALS: BP 186/51
[2018-09-26 06:01] LABS: CALCIUM 8.7 mg/dL (8.5-10.1); CREATININE 2.4 mg/dL (0.6-1.0); MAGNESIUM 1.7 mg/dL (1.8-2.4)
[2018-09-26 06:02] LABS: POTASSIUM 5.7 mmol/L (3.5-5.1)
--- NOTE | 2018-09-26 07:49 | NUR ---
TRAPEZE ARTIST CHECKED PATIENT COST FOR REHAB WITH [facility] AND IT WOULD BE A CO-PAY OF $1364.00 PER DAY. INFORMATION RELAYED TO WOMEN SPECIALIST. WOMEN SPECIALIST ASKED TRAPEZE ARTIST TO CANCEL REQUEST FOR AUTHORIZATION. PATIENT WILL PLAN ALTERNATE D/C SETTING.
[2018-09-26 11:20] LABS: INR 2.9; PROTIME 30.3 Seconds (9.3-11.4)
[2018-09-26 12:12] VITALS: BP 138/46
[2018-09-26 13:09] LABS: GLOBULIN TOTAL 4.1 g/dL (2.2-3.9); M-SPIKE Not Observed g/dL (Not Observed)
[2018-09-26 14:10] LABS: URINE PROTEIN (MG/DL) 52.5 mg/dL (Not Estab.)
--- NOTE | 2018-09-26 14:46 | NUR ---
per 5N patient with $1364.00 copay for any acute care. Updated dtr who reports patient was at [facility] rehab a year ago and no bill rec for copay. Sp with [facility] acute rehab liason who concurred patient was there on unit. She cannot sp to billing. Requested 5N liason call ins to verify. Updated dtr.
--- NOTE | 2018-09-26 15:26 | NUR ---
PT ALERT AND ORIENTED. VSS. RECEIVED PRN PAIN MED WITH PARTIAL RELIEF. UP IN THE CHAIR THIS AM. DIET ADVANCED TO FULL LIQUID. NO CARDIAC OR RESPIRATORY DISTRESS NOTED. WILL CONTINUE TO MONITOR.
[2018-09-26 15:41] VITALS: BP 131/51
[2018-09-26 19:53] VITALS: BP 166/47
[2018-09-27 03:09] VITALS: BP 167/43
--- NOTE | 2018-09-27 03:09 | NUR ---
ASSESSMENT CHARTED. VSS. PT DENIES PAIN OR CONCERN. TURNS SELF IN BED. X1 ASSIST WITH WALKER TO BATHROOM. X1 BM BROWN LOOSE NO BLOOD OBSERVED. SLEEPING WELL THROUGHOUT NIGHT. PLAN FOR LABS THIS AM. SEE CM NOTES FOR PLANS FOR REHAB. WILL CONTINUE TO MONITOR AND WITH POC.
[2018-09-27 07:34] LABS: INR 2.8; PROTIME 28.7 Seconds (9.3-11.4)
[2018-09-27 08:53] VITALS: BP 157/43
[2018-09-27 12:00] VITALS: BP 145/48
[2018-09-27 16:00] VITALS: BP 152/60
--- NOTE | 2018-09-27 16:43 | NUR ---
spoke with patient and dtr. They cannot pay copay for acute rehab. They report patient would prefer home with HH rather than skilled care. Patient reports she lives with dtr and 2 granchildren they are twins age 13. grandchildren currently at camp. dtr with no preference for HH agency and agreeable to any accepting of insurance. Referral to [facility] they can accept. If patient to dc this weekend... call [phone] [facility] to alert of discharge. Fax orders to [phone]. call family
--- NOTE | 2018-09-27 17:34 | NUR ---
PT ALERT AND ORIENTED. VSS. RECEIVED PRN PAIN MED FOR ALMODOVAR WITH PARTIAL RELIEF. UP IN THE CHAIR THIS SHIFT. ON CLEAR LIQUID DIET. PARTICIPATED IN PT AND OT. NO CONCERNS AT THIS TIME WILL CONTINUE TO MONITOR.
[2018-09-27 20:09] VITALS: BP 168/46
[2018-09-28 04:09] LABS: INR 1.6; PROTIME 16.2 Seconds (9.3-11.4)
--- NOTE | 2018-09-28 04:11 | NUR ---
PATIENT ALERT AND ORIENTED WITH FORGETFULNESS.UP WITH THE WALKER TO THE BATHROOM WITH 1 ASSIST.PATIENT SLEPT THIS SHIFT.DENIES PAIN AND SOB.WILL MONITOR AND CONTINUE POC.
[2018-09-28 04:23] LABS: HEMATOCRIT 26.1 % (37.0-47.0); HEMOGLOBIN 8.5 gm/dL (12.0-15.0); MCH 28.1 pg (26.0-34.0); MCHC 32.6 g/dL (28.0-37.0); MCV 86.2 fL (80.0-100.0); RBC 3.02 mil/uL (4.20-5.00); RDW 18.8 % (10.5-14.5); WBC 6.2 thou/uL (4.0-11.0)
[2018-09-28 05:48] VITALS: BP 168/50
[2018-09-28 07:20] VITALS: BP 153/58
[2018-09-28 12:04] VITALS: BP 140/49
[2018-09-28 16:35] VITALS: BP 141/36
--- NOTE | 2018-09-28 18:13 | NUR ---
PT ALERT AND ORIENTED. RECEIVED PRN PAIN MED FOR LEFT HAND PAIN. HAD BOWEL PREP THIS SHIFT. HAS COLONOSCOPY AND EGD SCHEDULED TOMMOROW MORNING.
[2018-09-28 19:35] VITALS: BP 149/44
[2018-09-29 04:25] VITALS: BP 150/45
[2018-09-29 06:52] LABS: HEMATOCRIT 27.5 % (37.0-47.0); MCHC 32.8 g/dL (28.0-37.0); MCV 85.6 fL (80.0-100.0); RBC 3.21 mil/uL (4.20-5.00); RDW 18.6 % (10.5-14.5); WBC 7.2 thou/uL (4.0-11.0)
[2018-09-29 07:08] LABS: INR 1.2; PROTIME 12.8 Seconds (9.3-11.4)
--- NOTE | 2018-09-29 08:14 | NUR ---
RECEIVED PT'S CARE AT 1933; PT. ON BED; DAUGHTER AT THE BED SIDE; DRINKING BOWEL PREP; DURING ASSESSMENT ALERT TO PERSON; SITUATION; PLACE; NO C/O PAIN; EDUCATED ABOUT GOALS; ST. UNDERSTANDING; THROUGH THE NIGHT CALLED APROPIATELY; AROUND MIDNIGHT C/O NAUSEA; PRN MEDICATION GIVEN; ABLE TO REST THROUGH THE NIGHT; NPO AFTER MIDNIGHT; ASSESSMENT CHARGED; FOLLOWING POC; PASSED ON REPORT TO WALTER CRUZ.
[2018-09-29 08:42] LABS: CALCIUM 9.8 mg/dL (8.5-10.1); CREATININE 3.3 mg/dL (0.6-1.0)
[2018-09-29 08:44] VITALS: BP 153/37
[2018-09-29 11:15] VITALS: BP 150/47
--- NOTE | 2018-09-29 11:17 | NUR ---
SW reviewed chart and spoke with nursing. Pt is scheduled to have EGD and colonoscopy today. SW updated [facility]. Contact info for [facility] placed in pt's discharge summary. Final discharge orders/summary will need to be faxed when available. SW is available to assist should needs arise. [facility]-- Fax; [phone]
[2018-09-29 12:15] VITALS: BP 150/89
--- NOTE | 2018-09-29 14:26 | NUR ---
Assumed care of pt at 0700. Pt alert and oriented x3. Follows commands. Pt underwent EGD and colonoscopy procedures this am. Resting comfortable at this time. Fall precautions in place. Will continue to monitor.
[2018-09-29 16:11] VITALS: BP 175/67
[2018-09-29 19:45] VITALS: BP 163/60
[2018-09-30 04:00] VITALS: BP 164/63
[2018-09-30 07:29] VITALS: BP 128/48
[2018-09-30 07:34] LABS: INR 1.3; PROTIME 13.4 Seconds (9.3-11.4)
--- NOTE | 2018-09-30 07:36 | NUR ---
ASSESSMENTS CHARTED. RESTING IN BED DURING SHIFT. V-PACED ON MONITOR. LUNGS HAVE RALES. ACHS ON LOW SSI. UP TO BSC WITH ASSIST OF ONE. NO SKIN ISSUES, DENIES PAIN. PATIENT HAD 900 FLUID IN AND ONLY 190 OUT. ON FALL PRECAUTIONS. YESTERDAY SHE HAD A EGD AND COLONOSCOPY. THEY REMOVED MULTIPLE POLYPS FOR BIOPSY.
[2018-09-30 08:57] LABS: HEMOGLOBIN 8.5 gm/dL (12.0-15.0); MCH 28.5 pg (26.0-34.0); MCHC 32.7 g/dL (28.0-37.0); RBC 2.99 mil/uL (4.20-5.00); RDW 18.8 % (10.5-14.5); WBC 6.9 thou/uL (4.0-11.0)
[2018-09-30 09:01] LABS: CALCIUM 9.2 mg/dL (8.5-10.1); CREATININE 3.2 mg/dL (0.6-1.0); POTASSIUM 5.4 mmol/L (3.5-5.1)
[2018-09-30 15:07] VITALS: BP 132/54
--- NOTE | 2018-09-30 15:58 | NUR ---
Assessment completed.vss but low dbp noted.Assisted pt with tray setup at all meals.Pt has poor appetite but only like drinking orange juice.C/o headache and tylenol given x2 this shift with relief.Pt ambulated in the room with therapist.Fair endurance noted.Family here to visit,updates given.Dr Noel and Darrick here,order noted.Heparin gtt started around 1230,next aptt will be done at 1800.No further c/o Will continue to monitor.
[2018-09-30 20:00] VITALS: BP 163/60
[2018-10-01 02:54] LABS: CREATININE 3.4 mg/dL (0.6-1.0); POTASSIUM 5.3 mmol/L (3.5-5.1)
[2018-10-01 02:59] LABS: CALCIUM 9.3 mg/dL (8.5-10.1)
[2018-10-01 03:15] LABS: INR 1.9; PROTIME 19.4 Seconds (9.3-11.4)
[2018-10-01 03:59] VITALS: BP 160/60
--- NOTE | 2018-10-01 05:53 | NUR ---
ASSESSMENTS CHARTED. RESTING IN BED DURING SHIFT. LUNGS NOW SOUND CLEAR. UP TO BSC WITH ASSIST X 1. STILL WORKING ON GETTING HEPARIN THERAPUTIC. RETEST APTT ON ORDER FOR 1000. PLAN IS TO POSSIBLE TRANSFER TO OUR REHAB.
[2018-10-01 07:30] VITALS: BP 164/63
[2018-10-01 10:43] LABS: HEMATOCRIT 28.1 % (37.0-47.0); MCHC 32.1 g/dL (28.0-37.0); MCV 87.1 fL (80.0-100.0); RBC 3.22 mil/uL (4.20-5.00); RDW 19.2 % (10.5-14.5); WBC 7.9 thou/uL (4.0-11.0)
[2018-10-01 11:10] VITALS: BP 148/56
--- NOTE | 2018-10-01 14:01 | EKG ---
[place] [address] [facility] [place] [address] ELECTROCARDIOGRAM REPORT Name: RADHAMATEO Room #: 216-P ADM IN M.R.#: [id number] ������������������ Admission: 09/21/18 ������������������ Attend Phys: Dionisio Paiz MD Discharge: ������������������ Date of : 41 Report #: [id number] ����������������������������������������������������������������� [id number] THIS REPORT FOR: //name// [facility] Test Date: 2018-10-01 Test Time: 09:57:35 Pat Name: MATEO GARCIA Department: Room: 216 P Gender: F Crop Adjuster: JUAN JOSE : 1945 Requested By: Saleem Noel Order Number: [id number] MD: Castillo Aragon Measurements Intervals [place] Rate: 66 P: 51 MT: 180 QRS: -67 QRSD: 131 T: 90 QT: 503 QTc: 528 Interpretive Statements Atrial-sensed ventricular-paced rhythm No further analysis attempted due to paced rhythm Compared to ECG 09/21/2018 13:53:33 No significant changes Electronically Signed On 10-01-2018 14:00:50 CDT by Castillo Aragon [email or web address] ��������������������������������������������� <ELECTRONICALLY SIGNED> ���������������������������������������� By: Castillo Aragon MD, [facility] ��������������������������������������������� 10/01/18 1400 0957 0957 Castillo Aragon MD, [facility] /EPI
--- NOTE | 2018-10-01 16:12 | NUR ---
AAOX3 FORGETFUL PLEASANT AND COOPERATIVE. NEEDS ENCOURAGEMENT TO EAT - POOR APPETITE ATE 50% OF MEALS. UP WITH ONE TO BR AND SHOWER TAKEN GOOD TOLEATION OF ACITIVITY. IV LEFT AC WITH HEPARIN INFUSING. TURNED RATE DOWN TO 3MG/HR BASED ON APTT. HAD ONE EPISODE OF CHEST PAIN AT 1030 STAT EKG OBTAINED AND GI COCKTAIL ADMINSTERED - GOOD RELIEF OF CP.
[2018-10-01 17:11] VITALS: BP 157/58
[2018-10-01 19:38] VITALS: BP 178/68
--- NOTE | 2018-10-02 01:31 | NUR ---
ASSESSMENTS CHARTED. PATIENT HAS HEPARIN RUNNING. TITRATED AT START OF SHIFT. LAB RESCHEDULED FOR 0200. RESTING IN BED DURING SHIFT. DENIES PAIN. FALL PRECAUTIONS IN PLACE.
[2018-10-02 02:50] LABS: CALCIUM 8.8 mg/dL (8.5-10.1); CREATININE 3.4 mg/dL (0.6-1.0); POTASSIUM 4.9 mmol/L (3.5-5.1)
[2018-10-02 02:56] LABS: APTT 55.1 Seconds (24.5-32.8); PROTIME 37.6 Seconds (9.3-11.4)
[2018-10-02 03:05] LABS: INR 3.6
[2018-10-02 04:26] VITALS: BP 179/66
[2018-10-02 07:30] VITALS: BP 148/52
--- NOTE | 2018-10-02 10:14 | NUR ---
Followup: ST continues to work with pt, no longer needing puree. Intake less than 50% of meals so continue to offer glucerna shakes unless K starts to increase again, then can change to nepro. Change nutrition status to low risk with nutrition interventions in place
[2018-10-02 11:00] VITALS: BP 145/43
--- NOTE | 2018-10-02 13:29 | NUR ---
AAOX4. SOME DYSARTHRIA R/T HX CVA, RIGHT SIDED WEAKNESS. WORKING WITH PT. ASSISTED TO BSC PRN. APPETITE BRISK. ANTICIPATING DISCHARGE TOMORROW IF COAGS COOPERATE. WILL CONTINUE TO FOLLOW.
[2018-10-02 15:15] VITALS: BP 132/45
--- NOTE | 2018-10-02 16:23 | NUR ---
cont plan for home with HH via [facility] updated dtr.
[2018-10-02 19:51] VITALS: BP 141/45
--- NOTE | 2018-10-03 03:40 | NUR ---
ASSESSMENT DOCUMENTED.PT RESTING IN NO ACUTE DISTRESS.VSS.A/OX4.DENIES ANY NEEDS.UP WITH ASSIST TO BR.ANTICIPATING DISCHARGE TODAY TO HOME W/HH.WILL CONT TO MONITOR PER POC.
[2018-10-03 03:54] LABS: HEMATOCRIT 26.1 % (37.0-47.0); HEMOGLOBIN 8.5 gm/dL (12.0-15.0); MCHC 32.7 g/dL (28.0-37.0); MCV 85.7 fL (80.0-100.0); RBC 3.05 mil/uL (4.20-5.00); RDW 18.6 % (10.5-14.5); WBC 7.3 thou/uL (4.0-11.0)
[2018-10-03 03:59] LABS: PROTIME 47.8 Seconds (9.3-11.4)
[2018-10-03 04:07] LABS: INR 4.6
[2018-10-03 05:12] VITALS: BP 156/42
[2018-10-03 07:36] VITALS: BP 159/60
[2018-10-03 11:23] VITALS: BP 142/43
--- NOTE | 2018-10-03 12:07 | PATH ---
[facility] [place] [address] PATHOLOGY RPT PROCEDURE Name: OPAL GARCIA Room #: 216-P [facility] IN M.R.#: [id number] ������������������ Admission: 09/21/18 ������������������ Date of : 41 Discharge: Report #: [id number] Path Case #: [id number] [facility] Accession Number: [id number] . 01 Material submitted: . PART A: colon - POLYP AT DESCENDING COLON X2. Modifiers: descending PART B: colon - POLYP AT ASCENDING COLON X5. Modifiers: ascending PART C: cecum - POLYP AT CECAL/CECUM PART D: colon - POLYP AT TRANSVERSE X2. Modifiers: transverse . 01 Clinical history: . Pre-OP DX: Anemia Post-OP DX: Colon polyps, gastritis, diverticulosis, gastric erosions . 02 Diagnosis: A. Polyp x2, at descending colon, endoscopic biopsy: - TUBULAR ADENOMA WITH FOCI OF HIGH-GRADE DYSPLASIA. - Negative for invasion. - Cauterized margin showing unremarkable and adenomatous mucosa. . B. Polyp x5, ascending colon, endoscopic biopsy: - Tubular adenoma. - Negative for high-grade dysplasia. . C. Pop, at cecum, endoscopic biopsy: - Tubular adenoma, inflamed. - Negative for high-grade dysplasia. . D. Polyp x2, transverse colon, endoscopic biopsy: - Tubular adenoma present in both fragments sampled. - Negative for high-grade dysplasia. . (IUV:optics test technician; 10/02/2018) MBR/10/02/2018 . 02 Comment: Part A of this case was co-reviewed by Dr. Kwabena Mazariegos who concurs with my diagnosis. (IUV/db; 10/02/2018) . 02 Electronically signed: . Sobeida Servin MD, Pathologist NPI- [id number] . 01 Gross description: . A. Received in formalin labeled "Opal Garcia, polyp at descending colon x2," is a 0.8 x 0.5 x 0.5 cm polypoid piece of [place] [address] PATHOLOGY RPT PROCEDURE Name: OPAL GARCIA Room #: 216-P [facility] IN M.R.#: [id number] ������������������ Admission: 09/21/18 ������������������ Date of : 41 Discharge: Report #: [id number] Path Case #: [id number] margin is inked and the tissue is sectioned perpendicular to the margin and submitted entirely in cassette A1. Additionally received in the same container is a single segment of harrington soft tissue measuring 0.3 cm in maximum dimension. The specimen is submitted entirely in cassette A2. . B. Received in formalin labeled "Opal Garcia, polyp at ascending colon x5," are multiple segments of harrington soft tissue measuring 1.5 x 0.4 x 0.2 cm in aggregate dimensions. The specimen is filtered and entirely submitted in cassette B1. . C. Received in formalin labeled "Opal Garcia, polyp at cecum," is a single segment of harrington soft tissue measuring 0.3 cm in maximum dimension. The specimen is submitted entirely in cassette C1. . D. Received in formalin labeled "Opal Garcia, polyp at transverse," and additionally labeled on the requisition as "x2," are 3 segments of harrington soft tissue measuring 1.0 x 1.0 x 0.3 cm in aggregate dimensions and ranging from 0.3 to 0.6 cm in maximum dimension. The specimen is submitted entirely in cassette D1. (TSD; 09/29/2018) TOB/TOB . 02 Pathologist provided ICD-10: D12.4, D12.2, D12.0, D12.3 . 02 CPT . 189971, 868823, 332052, 947041 Specimen Comment: A courtesy copy of this report has been sent to Specimen Comment: [phone], . Specimen Comment: Report sent to / DR SHORT Performed at: [address], [place], [place] [id number] MD Greg Castillo MD Phone: [phone] Performed at: [address] [id number] MD Sobeida Servin MD Phone: [phone]
[2018-10-03 15:38] VITALS: BP 143/56
--- NOTE | 2018-10-03 17:07 | NUR ---
ASSUMED CARE AT 0700, SHIFT ASSESSMENT DONE, MEDS GIVEN, VSS. REPORTED PAIN, PRN PAIN MED GIVEN. WORKED WITH PHYSICAL THERAPHY, WAS ABLE TO TRANSFER TO THE CHAIR. AWAITING FOR INR TO COME DOWN FOR PATIENT TO DISCHARGE.
[2018-10-03 22:02] VITALS: BP 156/55
--- NOTE | 2018-10-04 03:13 | NUR ---
ASSESSMENT DOCUMENTED.PT BEEN RESTING IN NO ACUTE DISTRESS.A/OX4.VSS.DENIES ANY NEEDS.V-PACED ON MONITOR.RA W/O RESP DISTRESS.POSSIBLE DISCHARGE THIS AM IF INR IS STABLE.NO ACTIVE BLEEDING NOTED.WILL CONT TO MONITOR PER POC.
[2018-10-04 04:15] VITALS: BP 175/66
[2018-10-04 04:26] LABS: CALCIUM 8.9 mg/dL (8.5-10.1); CREATININE 3.5 mg/dL (0.6-1.0); POTASSIUM 4.2 mmol/L (3.5-5.1)
[2018-10-04 04:42] LABS: PROTIME 41.8 Seconds (9.3-11.4)
[2018-10-04 04:58] LABS: HEMATOCRIT 25.1 % (37.0-47.0); HEMOGLOBIN 8.3 gm/dL (12.0-15.0); MCH 28.4 pg (26.0-34.0); MCHC 32.9 g/dL (28.0-37.0); MCV 86.3 fL (80.0-100.0); RBC 2.91 mil/uL (4.20-5.00); RDW 18.6 % (10.5-14.5)
[2018-10-04] MEDS ORDERED: CARVEDILOL25 MG PO (07:44)
[2018-10-04] MEDS ORDERED: COUMADIN 4 MG TA4 M1 PO (07:46)
[2018-10-04 07:56] VITALS: BP 153/54
[2018-10-04 11:01] VITALS: BP 171/60
--- NOTE | 2018-10-04 15:22 | NUR ---
ASSUMED CARE AT 0700, SHIFT ASSESSMENT DONE, MEDS GIVEN, VSS. DENIES ANY PAIN, NAUSEA, VOMITING. DISCHARGE ORDER GIVEN BY HOSPITALSIT, BUT CARDIOLOGY DOES NOT WANT THE PATIENT TO LEAVE BECASUE INR IS STILL AT 4.0. THEY WANT INR TO BE BELOW 3.5. APPETITE POOR, FALL PRECAUTIONS IN PLACE. GOT A BED BATH TODAY. POSSIBLE DC TODAY. WILL CONTINUE TO ASSESS AND ASSIST WITH ADLs NEEDED.
[2018-10-04 16:48] VITALS: BP 148/61
[2018-10-04 20:18] VITALS: BP 134/58
[2018-10-05 04:30] VITALS: BP 148/58
[2018-10-05 04:34] LABS: HEMATOCRIT 25.4 % (37.0-47.0); HEMOGLOBIN 8.4 gm/dL (12.0-15.0); MCH 28.3 pg (26.0-34.0); MCHC 33.1 g/dL (28.0-37.0); MCV 85.5 fL (80.0-100.0); RBC 2.98 mil/uL (4.20-5.00); RDW 18.6 % (10.5-14.5); WBC 6.5 thou/uL (4.0-11.0)
[2018-10-05 04:36] LABS: INR 3.6; PROTIME 37.1 Seconds (9.3-11.4)
--- NOTE | 2018-10-05 06:14 | NUR ---
ASSESSMENTS CHARTED. RESTING IN BED DURING SHIFT. PATIENT MORE ALERT DURING SHIFT THAN LAST WEEK. PATIENT HAS DISCHARGE ORDERS ON FILE IF HER INR IS BELOW 3.5. LABS THIS MORNING IS 3.6.
[2018-10-05 07:26] VITALS: BP 149/64
[2018-10-05 10:52] VITALS: BP 150/47
[2018-10-05 11:11] VITALS: BP 147/62
[2018-10-05 12:08] VITALS: BP 150/47
--- NOTE | 2018-10-05 12:27 | NUR ---
ASSESSMENT CHARTED - MEDS PER MAY- NO CO'S OF PAIN OR NASUEA. HERNANDEZ DIET AND FLUIDS. UP IN ROOM WITH WALKER AND STBY ASSIST. PT HOME THIS AFTERNOON - INSTRUCTION RE HOME MEDS/ CARE AND FOLLOW UP GIVEN TO DAUGHTER - STATED UNDERSTANDING OF INSRUCTION GIVEN. MONITOR AND IV REMOVED PRIOR TO D/C. LEFT UNIT VIA WHEEL CHAIR - HOME VIA PVT VEHICLE - NO CO'S AT TIME OF D/C.
--- NOTE | 2018-10-05 16:42 | NUR ---
pt dc'd to home today with her dtr. hh confirmed with [facility] along with protime draw tomorrow. no other needs noted. case closed.
== END 2018-10-05 12:30 | disposition home health service (06) | DRG 377 ==
LOC: ER 13:39 → EROBS 18:01 → 2N 18:01 → ENTRNSPT 10-05 12:25 → 2N 10-05 12:30
PROVIDERS: Anesthesiology; Emergency Medicine; Hospitalist; Internal Medicine; Internal Medicine Cardiovascular Disease; Nurse Practitioner; Nurse Practitioner Acute Care; Nurse Practitioner Adult Health; ADMIT Internal Medicine
DX: K29.71 Gastritis, unspecified, with bleeding (principal); G93.41 Metabolic encephalopathy; E43 Unspecified severe protein-calorie malnutrition; N17.9 Acute kidney failure, unspecified; D68.9 Coagulation defect, unspecified; I38 Endocarditis, valve unspecified; I50.30 Unspecified diastolic (congestive) heart failure; D62 Acute posthemorrhagic anemia; N18.4 Chronic kidney disease, stage 4 (severe); G81.91 Hemiplegia, unspecified affecting right dominant side; I13.0 Hypertensive heart and chronic kidney disease with heart failure and stage 1 through stage 4 chronic kidney disease, or unspecified chronic kidney disease; K25.4 Chronic or unspecified gastric ulcer with hemorrhage; K57.31 Diverticulosis of large intestine without perforation or abscess with bleeding; E78.5 Hyperlipidemia, unspecified; K21.9 Gastro-esophageal reflux disease without esophagitis; F01.50 Vascular dementia, unspecified severity, without behavioral disturbance, psychotic disturbance, mood disturbance, and anxiety; R47.1 Dysarthria and anarthria; M62.84 Sarcopenia; E87.5 Hyperkalemia; M10.079 Idiopathic gout, unspecified ankle and foot; I25.10 Atherosclerotic heart disease of native coronary artery without angina pectoris; E87.70 Fluid overload, unspecified; K64.9 Unspecified hemorrhoids; Z95.0 Presence of cardiac pacemaker; Z90.49 Acquired absence of other specified parts of digestive tract; I25.2 Old myocardial infarction; Z95.2 Presence of prosthetic heart valve; Z79.01 Long term (current) use of anticoagulants; Z88.6 Allergy status to analgesic agent; Z79.82 Long term (current) use of aspirin; Z79.899 Other long term (current) drug therapy; Z95.5 Presence of coronary angioplasty implant and graft; Z86.73 Personal history of transient ischemic attack (TIA), and cerebral infarction without residual deficits
CPT/HCPCS: 10081; 62110; 62900; 70005

== ENCOUNTER 2018-11-01 13:22 | Inpatient (IN) | payer OTHER ==
[~2018-11-01] VITALS: Ht 152.4 cm; Wt 52.2 kg
--- NOTE | ~2018-11-01 | EMS ---
[address] [address] EMS Patient Care Report Name: MATEO GARCIA Room #: REG QASIM Jamison#: [id number] Admission: 11/01/18 Attend Phys: Discharge: Date of : 41 Report #: [id number] THIS REPORT FOR: //name// Report Transmitted: 11/01/2018 16:01 EMS Care Summary [place], [place]/[facility] Incident [id number] @ 11/01/2018 12:52 Incident Location [facility] [address] [place] [address] Patient MATEO GARCIA Female, 73 Years 1945 Patient Address [address] [place] [address] Patient History Pacemaker/AICD,Stroke/CVA,Chronic Pain,Myocardial Infarction (HI), Patient Allergies No known allergies, Patient Medications Allopurinol, Pantoprazole, Nitroglycerin, Sertraline, Carvedilol, Warfarin, Hydralazine, Atorvastatin, Chief Complaint BLEEDING Disposition Transported No Lights/[place] Dispatch Reason Hemorrhage/Laceration Transported To [facility] Narrative M42 P42 DISPATCHED TO A HEMMORHAGE ON SCENE M42 FOUND THE PT SITTING IN THE KITCHEN WITH [place]ILY[place] [address] EMS Patient Care Report Name: MATEO GARCIA Room #: REG ER Shaheen#: [id number] Admission: 11/01/18 Attend Phys: Discharge: Date of : 41 Report #: [id number] STATED THAT THE PT JUST STARTED HAVING VAGINAL BLEEDING WHICH STARTED TODAY. THEY STATED THAT IT WAS A CONSIDERABLE AMOUNT AND THAT THE PT WAS WEARING A BRIEF. THEY STATED THAT THE PT HAS BEEN IN AND OUT OF THE HOSPITAL FOR ABOUT A MONTH. THEY STATED THE PT HAS A A CARDIAC HX, CVA, CHRONIC KNEE PAIN, AND A PACEMAKER. THE PT AT THIS TIME DENIED CP, SOB, DIZZINESS, OR N/V. THE PTS ONLY COMPLAINT WAS BILATERAL KNEE PAIN. PTS MED LIST WAS OBSERVED. PT WAS MOVED TO THE AMBULANCE VIA COT. IN THE AMBULANCE VITAL SIGNS OBTAINED. BGA OBTAINED. PT WAS PLACED ON MERCHANDISE COORDINATOR WHICH SHOWED PACED. PT TRANSPORTED TO [facility] NON EMERGENT. EN ROUTE PT CONDITION REMAINED STABLE. PT HAD NO COMPLAINTS. REPORT GIVEN TO RN AT [facility]. SIGNATURES OBTAINED. TRANSFER OF CARE TOOK PLACE. M42 IN SERVICE. Initial Vitals @13:04P: 85,CO: 9,SpO2: 100, @13:03P: 86,R: 18,BP: 180/69,Pain: 2/10,GCS: 15,SpO2: 99,Revised Trauma: 12,HI Suspected: false @13:14P: 94,R: 18,BP: 178/76,Pain: 2/10,GCS: 15,CO: 0,SpO2: 100,Revised Trauma: 12,HI Suspected: false Assessments @12:59MENTAL:Confused,Person Oriented,Place Oriented,Event Oriented,SKIN:HEENT:LUNG SOUNDS:ABDOMEN:PELVIS//GI:Rectal Bleeding,EXTREMITIES:Right Leg: Other,Left Leg: Other,Capillary Refill: Right Upper: < 2 Sec,PULSE:Radial: 2+ Normal,NEURO:@13:10MENTAL:Place Oriented,Event Oriented,Person Oriented,Confused,SKIN:HEENT:LUNG SOUNDS:ABDOMEN:PELVIS//GI:Pelvis GUOther,Rectal Bleeding,EXTREMITIES:Right Leg: Other,Left Leg: Other,Capillary Refill: Right Upper: < 2 Sec,PULSE:Radial: 2+ Normal,NEURO: Impression Gastrostomy hemorrhage Procedures @12:59ALS AssessmentResponse: UnchangedSucceeded@13:043-Lead ECGResponse: UnchangedSucceeded@13:05Saline Lock 0cc (20 ga) Site: Hand-LeftResponse: UnchangedFailed Timeline 12:50,Call Received 12:50,Dispatch Notified 12:52,Dispatched [address] [address] EMS Patient Care Report Name: CR GARCIACARY OROZCOH Room #: [facility] [id number] Admission: 11/01/18 Attend Phys: Discharge: Date of : 41 Report #: [id number] 12:53,En Route 12:58,On Scene 12:59,At Patient 12:59,ALS Assessment,Response: UnchangedSucceeded, 13:03,BP: 180/69 M,PULSE: 86,RR: 18 R,SPO2: 99 Ox,ETCO2: ,BG: ,PAIN: 2,GCS: 15, 13:04,BP: / M,PULSE: 85,RR: R,SPO2: 100 Ox,ETCO2: ,BG: ,PAIN: ,GCS: , 13:04,3-Lead ECG,Response: UnchangedSucceeded, 13:05,Saline Lock 0cc 20 ga Site: Hand-Left,Response: UnchangedFailed, 13:06,Depart Scene 13:14,BP: 178/76 M,PULSE: 94,RR: 18 R,SPO2: 100 Ox,ETCO2: ,BG: ,PAIN: 2,GCS: 15, 13:19,At Destination 13:43,Call Closed Disclaimer v1.1 Copyright 2019 [employer] This EMS Care Summary contains data elements from the applicable legal record (which may be displayed differently). It is designed to provide pertinent information for the following purposes: continuity of care, clinical quality, and state data reporting. The complete legal record is available to ED staff and administrators of the receiving hospital in [employer] Patient Tracker. All data is provided "as is."
[~2018-11-01 13:22] MED LIST changes: +CARVEDILOL25 MG PO; +COUMADIN 4 MG TA4 M1 PO; +SODIUM BICARBO650 M3 PO
[2018-11-01 13:23] VITALS: BP 164/84
[2018-11-01 13:38] LABS: URINE BILIRUBIN NEGATIVE (Negative); URINE BLOOD NEGATIVE (Negative); URINE CLARITY CLEAR; URINE COLOR YELLOW; URINE GLUCOSE-RANDOM* NEGATIVE (Negative); URINE KETONES NEGATIVE (Negative); URINE LEUKOCYTES-REFLEX NEGATIVE (Negative); URINE NITRITE-REFLEX NEGATIVE (Negative); URINE PROTEIN (DIPSTICK) 1+ (Negative); URINE UROBILINOGEN 0.2 E.U./dl (0.2-1.0)
[2018-11-01 13:52] LABS: CASTS None Seen /LPF (None Seen); CRYSTALS None Seen /LPF (None Seen); SQUAMOUS 0-3 Few /LPF (0-3)
[2018-11-01 13:53] LABS: BACTERIA-REFLEX 1-9 Few /HPF (None Seen); URINE RBC None Seen /HPF (0-2); URINE WBC-REFLEX None Seen /HPF (0-5)
--- NOTE | 2018-11-01 14:55 | NUR ---
LAB AT BEDSIDE TO COLLECT SPECIMENS; PROVIDER AWARE
--- NOTE | 2018-11-01 14:56 | NUR ---
IV TEAM PLACING PIV NOW
[2018-11-01 15:14] LABS: ABSOLUTE NEUTROPHILS 4.6 thou/uL (1.4-8.2); BASOPHILS 0.6 % (0.0-2.0); CALCIUM 9.9 mg/dL (8.5-10.1); CREATININE 2.7 mg/dL (0.6-1.0); HEMATOCRIT 22.4 % (37.0-47.0); HEMOGLOBIN 7.4 gm/dL (12.0-15.0); LYMPHOCYTES 20.3 % (24.0-44.0); MCH 28.5 pg (26.0-34.0); MCHC 32.9 g/dL (28.0-37.0); MCV 86.4 fL (80.0-100.0); PLATELET COUNT 235 thou/uL (150-400); POLYS 70.1 % (36.0-66.0); POTASSIUM 4.4 mmol/L (3.5-5.1); RBC 2.59 mil/uL (4.20-5.00); RDW 17.4 % (10.5-14.5); WBC 6.6 thou/uL (4.0-11.0)
[2018-11-01 15:17] LABS: APTT 39.3 Seconds (24.5-32.8); INR 1.6; PROTIME 16.2 Seconds (9.3-11.4)
[2018-11-01 15:20] LABS: ALBUMIN 2.3 g/dL (3.4-5.0); TOTAL BILIRUBIN 0.4 mg/dL (<0.1-1.0); TOTAL PROTEIN 8.5 g/dL (6.4-8.2)
[2018-11-01 17:38] VITALS: BP 183/64
[2018-11-01 17:40] VITALS: BP 183/64
[2018-11-01] MEDS ORDERED: NITROGLYCERIN0.4 MG SUBLING (17:53)
[2018-11-01] MEDS ORDERED: ALLOPURINOL 10100 M2 PO (17:54)
[2018-11-01 18:02] VITALS: BP 183/47
--- NOTE | 2018-11-01 18:34 | NUR ---
REC PT APPROX [id number], GOT HER SETTLED IN BED WITH A TRANSFER FROM ED ERIWN, DAUGHTER ACCOMPANYING, PT IS VERY CONFEDERATED COOS AND SMILES A LOT. GAVE WEAK RETURN DEMO WITH CALL LIGHT. PROTONIX GTT AT 25ML/HR. CARDIAC MONITORING. DENIES ANY PAIN AT THIS TIME, SET UP MOUTH SWABS. FULL ADMISSION WILL BE COMPLETED BY ONCOMING STAFF
[2018-11-01 18:45] VITALS: BP 185/55
[2018-11-01 19:47] LABS: HEMOGLOBIN 6.9 gm/dL (12.0-15.0)
[2018-11-02 00:45] VITALS: BP 162/55
[2018-11-02 04:36] VITALS: BP 179/47
[2018-11-02 05:13] LABS: ABSOLUTE NEUTROPHILS 3.9 thou/uL (1.4-8.2); LYMPHOCYTES 20.5 % (24.0-44.0)
[2018-11-02 05:16] LABS: BASOPHILS 0.5 % (0.0-2.0); EOSINOPHILS 1.4 % (0.0-3.0); MCH 28.8 pg (26.0-34.0); MCHC 33.2 g/dL (28.0-37.0); MCV 86.9 fL (80.0-100.0); MONOCYTES 9.2 % (1.0-8.0); PLATELET COUNT 197 thou/uL (150-400); POLYS 68.4 % (36.0-66.0); RBC 2.16 mil/uL (4.20-5.00); RDW 17.4 % (10.5-14.5); WBC 5.6 thou/uL (4.0-11.0)
[2018-11-02 05:24] LABS: CALCIUM 9.1 mg/dL (8.5-10.1); CREATININE 2.6 mg/dL (0.6-1.0); MAGNESIUM 1.7 mg/dL (1.8-2.4); POTASSIUM 4.2 mmol/L (3.5-5.1)
--- NOTE | 2018-11-02 05:31 | NUR ---
PATIENTS CARES WERE ASSUMED AT SHIFT CHANGE. PATIENT WAS ASSESSED AND MEDS WERE PASSED. PATIENT DID HAVE A VOID THAT THE URINE WAS A LIGHT PINK IN COLOR AND SHE HAS A BREATH SMELL OF A GI BLEED. HOURLY ROUNDING WAS DONE. THE BED IS IN A LOW AND LOCKED POSITION
[2018-11-02 05:32] LABS: HEMATOCRIT 18.7 % (37.0-47.0); HEMOGLOBIN 6.2 gm/dL (12.0-15.0)
--- NOTE | 2018-11-02 08:11 | EKG ---
[address] [place] [address] ELECTROCARDIOGRAM REPORT Name: CR GARCIALEY DANNY Room #: 202-P ADM IN M.R.#: [id number] Admission: 11/01/18 Attend Phys: Sharan Frank MD Discharge: Date of : 41 Report #: [id number] THIS REPORT FOR: //name// [facility] ED Test Date: 2018-11-01 Test Time: 15:40:10 Pat Name: MATEO GARCIA Department: Room: 202 Gender: F Business Job Titles: jljennifer : 1945 Requested By: Merle Musa Order Number: [id number] MD: Castillo Aragon Measurements Intervals Leighton Rate: 74 P: 57 NM: 171 QRS: -77 QRSD: 138 T: 86 QT: 491 QTc: 545 Interpretive Statements Atrial-sensed ventricular-paced complexes No further analysis attempted due to paced rhythm Compared to ECG 10/01/2018 09:57:35 No significant changes Electronically Signed On 11-02-2018 8:11:04 CDT by Castillo Aragon [email or web address] <ELECTRONICALLY SIGNED> By: Castillo Aragon MD, [facility] 11/02/18 0811 1540 [id number] Castillo Aragon MD, [facility] /EPI
[2018-11-02 08:13] VITALS: BP 176/59
[2018-11-02 09:34] VITALS: BP 177/53; BP 182/56
[2018-11-02 09:41] LABS: INR 1.8; PROTIME 18.4 Seconds (9.3-11.4)
[2018-11-02 11:57] LABS: HEMOGLOBIN 6.7 gm/dL (12.0-15.0)
[2018-11-02 11:58] LABS: HEMATOCRIT 20.4 % (37.0-47.0)
[2018-11-02 16:12] VITALS: BP 185/55
--- NOTE | 2018-11-02 18:11 | NUR ---
PT CARE ASSUMED APPROX 0700. PT ALERT AND ORIENTED X2-3. APPROPRIATE IN CONVERSATION. DENIES SOA. REPORTED LLE PAIN BUT PT NPO. PT DID NOT WANT IV PAIN MEDS. DENIES PAIN AT THIS TIME. SBP ELEVATED ALL SHIFT BUT DBP LOW. DR WHITT AWARE THAT BP HAS BEEN TREATED FOR THIS REASON. VS OTHERWISE STABLE. PT'S LOW HGB TREATED WITH 2UNITS PRBC THIS SHIFT. PT TOLERATED. 1ST UNIT FINISHED IN GI LAB, 2ND UNIT COMPLETELY TRANSFUSED IN GI LAB. FAMILY CLINICALLY UPDATED MULTIPLE TIMES THIS SHIFT. PT COMPLETED EGD WITHOUT ISSUE. SEE REPORT. DR RODRIGUEZ ADVANCED PT'S DIET. PT TOELRATING DIET AT THIS TIME. DR CULVER PERFORMED PELVIC EXAM WITH PAP SMEAR THIS SHIFT. PT TOELRATED WITHOUT ISSUE. NO S/S OF ACTIVE BLEEDING AT THIS TIME. NPO AFTER MIDNIGHT FOR D&C IN AM. FAMILY AWARE. NS REMAINS TO POC. TURNING PT Q2HRS AND PRN. BS LOW BUT MANAGED WITH HYPOGLYCEMIA PROTOCOL. LAC PIV INFILTRATED AND REPLACED IN GI LAB TO RAC. NO DISTRESS NOTED.
[2018-11-02 19:27] VITALS: BP 179/54
[2018-11-03] VITALS (14 sets, daily range): BP systolic 157–186; BP diastolic 50–85
[2018-11-03 05:13] LABS: HEMATOCRIT 27.9 % (37.0-47.0); MCH 28.9 pg (26.0-34.0); MCHC 33.5 g/dL (28.0-37.0); MCV 86.4 fL (80.0-100.0); RBC 3.23 mil/uL (4.20-5.00); RDW 16.7 % (10.5-14.5); WBC 7.2 thou/uL (4.0-11.0)
[2018-11-03 05:25] LABS: PROTIME 20.3 Seconds (9.3-11.4)
[2018-11-03 05:26] LABS: CALCIUM 9.2 mg/dL (8.5-10.1); CREATININE 2.3 mg/dL (0.6-1.0); POTASSIUM 4.1 mmol/L (3.5-5.1)
[2018-11-03 05:41] LABS: HEMOGLOBIN 9.3 gm/dL (12.0-15.0)
--- NOTE | 2018-11-03 05:54 | NUR ---
ASSUME CARE 1900. PT STABLE. BP RUNS HIGH. COMPLAINS OF PAIN IN BILATERAL LOWER EXTREMITIES. WEAKNESS NOTED. POOR TOLERANCE TO ACTIVITY. ASSESSMETN AAS CHARTED. PROGRESSING WELL WITH POC. PLAN IS FOR PT TO BE NPO FROM MIDNIGHT FOR D/C TO BE DONE TODAY. BLOOD TINGED URINE NOTED SOMETIMES AND NOTED BLOOD ON PILLOW FROM PT DROOLING. WILL CONTINUE TO MONITOR AND FOLLOW WIHT POC
--- NOTE | 2018-11-03 07:54 | P ---
[facility] [address] [place] [address] PROCEDURE REPORT Name: MATEO GARCIA Room #: 202-P ADM IN M.R.#: [id number] Admission: 11/01/18 Attend Phys: Sharan Frank MD Discharge: Date of : 41 Report #: [id number] THIS REPORT FOR: //name// CC: FAM unknown Sharan Frank MD DATE OF SERVICE: 11/02/2018 PROCEDURE: Diagnostic EGD. PATIENT OF: Dr. Sharan Frank. INDICATION FOR PROCEDURE: The patient has had hematochezia and dropped her hemoglobin requiring transfusions. Her blood urea nitrogen is elevated and is thought that this bleeding may be from the upper GI tract. EGD is being performed to try to identify the source of the bleeding. Informed consent for this procedure was obtained prior to the administration of any medication. The risks of the procedure, which include but are not limited to bleeding, perforation, infection, complications of sedation and the possibility I could miss something were explained to the patient and she has indicated her consent by signing. Anesthesia kindly provided deep sedation with propofol for this procedure. With the patient in the left lateral decubitus position, the Olympus upper videoscope was introduced through the upper esophageal sphincter and advanced under direct visualization to the third portion of the duodenum. Findings are noted on withdrawal of the scope. There is no blood seen in the upper GI tract at this time. The duodenal mucosa appeared normal throughout its entirety. Pylorus, normal mucosa. Antrum, normal mucosa. Body, normal mucosa. Cardia and fundus, normal mucosa. Retroflex view did not reveal any abnormalities. The scope was withdrawn into the esophagus. The Z-line is located at the top of the gastric folds and appears normal. The esophageal mucosa appeared normal throughout its entirety. The scope was withdrawn. The patient went to the recovery area in stable condition. She tolerated the procedure well. IMPRESSION: Normal esophagogastroduodenoscopy to the third portion of the duodenum, source of hematochezia not clear from this exam. She had a recent colonoscopy done that did not reveal a source of the hematochezia either. We are going to proceed with a small bowel video capsule study tomorrow morning. [address] [address] PROCEDURE REPORT Name: MATEO GARCIA BEDFORD Room #: 202-P [facility] IN .R.#: [id number] Admission: 11/01/18 Attend Phys: Sharan Frank MD Discharge: Date of : 41 Report #: [id number] Thank you very much once again for allowing me to participate in her care. <ELECTRONICALLY SIGNED> By: Lisha Hunt DO 11/03/18 0754 1440 [id number] Lisha Hunt, DO /nt
--- NOTE | 2018-11-03 17:22 | NUR ---
Case opened to follow for dc planning. Pt known to cm from previous admissions. She is cared for at home by very supportive and involved family. She has had hh per [facility] in the recent past and has needed dme in the home. Should the pt be dc'd this weekend and need hh f/u. [facility] can be contacted at [phone] and orders faxed to [phone].
--- NOTE | 2018-11-03 17:50 | NUR ---
PT CARE ASSUMED APPROX 0700. PT ALERT AND ORIENTED X3. DENIES SOA. BP ELEVATED BUT AT PT'S BASELINE. VS OTHERWISE STABLE. PT REPORTED 8/10 PAIN TO LEFT KNEE THIS AM. PT WAS NPO AT THE TIME SO IV FENT ORDERED AND LIDOCAINE PATCH. PT REPORTED RELIEF UPON PAIN REASSESSMENT. DENIES PAIN AT THIS TIME. LEFT KNEE XRAY NEGATIVE. PT COMPLETED SURGERY WITHOUT EVENT. VSS POST OP. PT POST OP VS ARE NOT COMPLETED. NOC NURSE WILL BE NOTIFIED TO COMPLETE. SCANT AMOUNT DARK RED VAG BLOOD NOTED POST OP SO EXTERNAL CATH PUT IN PLACE PER FAMILY REPORT. MULTIPLE FAMILY MEMEBERS HAVE RECEIVED CLINICAL UPDATES. ALL DENY QUESTIONS OR CONCERNS REGARDING POC. PT APPETITE REMAINS POOR. FAMILY PRESENT FOR DINNER FOR ENCOURAGEMENT. S/T DID NOT CALL BACK FOR EVAL F/U. TURNING PT Q2 HRS AND PRN. IVF REMAIN TO POC. HEP GTT STARTED PER PROTOCOL. WILL MONITOR PT FOR BLEEDING. NONE NOTED AT THIS TIME. NO DISTRESS NOTED AT THIS TIME.
[2018-11-04 00:56] VITALS: BP 159/59
[2018-11-04 04:28] VITALS: BP 154/61
--- NOTE | 2018-11-04 06:25 | NUR ---
ASSUME CARE 1900. PT STABLE. BP RUNS HIGH. DENIES ANY PAIN. POOR TOLERANCE TO ACTIVITY. UP WITH WAKER AND ASSISTACE TO BEDSIDE COMMODE. ASSESSMENT CHARTED. PROGRESSING WELL WITH POC. NO VAGINAL BLEEDING NOTED THROUGH THE SHIFT. NO BLOODY URINE NOTED. SOME BLOODY SPIT NOTED BUT NO ACTIVE BLEEDING NOTED. POOR URINE OUTPUT NOTED. LAST CR 2.3/POOR KIDNEY FUNCTION. WILL CONTINUE TO MONITOR AND FOLLOW WITH POC.
[2018-11-04 07:35] LABS: INR 2.1; PROTIME 22.3 Seconds (9.3-11.4)
[2018-11-04 08:43] VITALS: BP 179/67
[2018-11-04 08:43] LABS: HEMATOCRIT 25.9 % (37.0-47.0); HEMOGLOBIN 8.7 gm/dL (12.0-15.0); MCH 29.3 pg (26.0-34.0); MCHC 33.7 g/dL (28.0-37.0); MCV 87.1 fL (80.0-100.0); RBC 2.98 mil/uL (4.20-5.00); RDW 16.8 % (10.5-14.5); WBC 5.4 thou/uL (4.0-11.0)
[2018-11-04 08:52] LABS: CALCIUM 8.9 mg/dL (8.5-10.1); CREATININE 2.2 mg/dL (0.6-1.0); POTASSIUM 4.6 mmol/L (3.5-5.1)
[2018-11-04 13:48] VITALS: BP 151/57
[2018-11-04 17:56] VITALS: BP 182/63
--- NOTE | 2018-11-04 18:38 | NUR ---
PT CARE ASSUMED APPROX 0700. PT DROWSY AND UNMOTIVATED. ORIENTED TO PERSON AND PLACE. BASELINE. DENIES PAIN AND SOA. BP ELEVATED TO PT BASELINE. VS OTHERWISE STABLE. TURNING PT Q2HRS AND PRN. REFUSES TO TRANSFER. REFUSING MEALS WELL. PT PARTICIPATED IN S/T SWALLOW EVAL. NEW SWALLOW PREC NOTED AND DIRECTIONS AT BEDSIDE. SUPPLEMENT ORDERED FOR POOR APPETITE. HEP GTT REMAINS TO POC. NO TITRATION REQUIRED THIS SHIFT PER PROTOCOL. IVF STOPPED THIS EVENING. PT URINE OUTPUT POOR. CREAT REMAINS AT BASELINE. URINAY CATH PLACED FOR STRICT I&O. NO ISSUES DURING PLACEMENT. NO FAMILY AT BEDSIDE THIS SHIFT. NO BLEEDING NOTED EXCEPT POTENTIALLY ORALLY. DR WHITT AWARE. NO OTHER CHANGES NOTED TO POC. PT TOLERATING POC. NO DISTRESS NOTED.
[2018-11-04 19:33] VITALS: BP 183/49
[2018-11-04 21:27] LABS: URINE BILIRUBIN NEGATIVE (Negative); URINE BLOOD TRACE (Negative); URINE CLARITY CLEAR; URINE COLOR YELLOW; URINE GLUCOSE-RANDOM* NEGATIVE (Negative); URINE KETONES NEGATIVE (Negative); URINE LEUKOCYTES-REFLEX NEGATIVE (Negative); URINE NITRITE-REFLEX NEGATIVE (Negative); URINE PROTEIN (DIPSTICK) 1+ (Negative)
[2018-11-04 21:39] LABS: SQUAMOUS 4-10 Moderate /LPF (0-3)
[2018-11-04 21:40] LABS: BACTERIA-REFLEX None Seen /HPF (None Seen); CASTS None Seen /LPF (None Seen); CRYSTALS None Seen /LPF (None Seen); URINE RBC 0-2 Rare /HPF (0-2); URINE WBC-REFLEX 0-5 Rare /HPF (0-5)
--- NOTE | 2018-11-05 04:33 | NUR ---
ASSUMED PT CARE AT 1900. PT A/O TO SELF AND PLACE, VITAL SIGNS STABLE, SBP ELEVATED IN 170-180'S. ASSESSMENT CHARTED. HYDRALAZINE GIVEN INDICATED FOR BP. NO COMPLAINTS OF PAIN. PT CLOSE TO NURSING STATION FOR CLOSE MONITORING. FALL PRECAUTIONS MAINTAINED. PT RESTED WELL THROUGH THE NIGHT. PROGRESSING TOWARD PLAN OF CARE. WILL CONTINUE TO MONITOR.
[2018-11-05 04:58] VITALS: BP 185/53
[2018-11-05 07:58] LABS: APTT 49.7 Seconds (24.5-32.8); INR 2.3; PROTIME 23.7 Seconds (9.3-11.4)
[2018-11-05 08:35] VITALS: BP 207/58
[2018-11-05 08:37] LABS: HEMATOCRIT 27.1 % (37.0-47.0); MCH 29.3 pg (26.0-34.0); MCHC 33.2 g/dL (28.0-37.0); MCV 88.4 fL (80.0-100.0); RBC 3.06 mil/uL (4.20-5.00); RDW 17.3 % (10.5-14.5); WBC 8.8 thou/uL (4.0-11.0)
[2018-11-05 08:41] LABS: CALCIUM 9.3 mg/dL (8.5-10.1); CREATININE 2.3 mg/dL (0.6-1.0); MAGNESIUM 1.6 mg/dL (1.8-2.4); POTASSIUM 4.2 mmol/L (3.5-5.1)
[2018-11-05 12:06] VITALS: BP 169/74
[2018-11-05 16:33] VITALS: BP 162/49
--- NOTE | 2018-11-05 18:51 | NUR ---
ASSUMED PT CARE AT 0700. ASSESSMENT CHARTED. PT IS AXO X4. FALL PRECAUTIONS ARE IN PLACE. PT IS RECIEVING A HEPARIN DRIP. HEPARIN PROTOCOL FOLLOWED ORDERED. PT IS AT A THERAPEUTIC LEVEL CURRENTLY. PT HAD FAMILY MEMBERS COME AND VISIT TODAY. PT'S FAMILY WAS EDUCATED ABOUT PT'S CURRENT STATUS. PT'S FAMILY MEMBERS COMMUNICATED UNDERSTANDING. PT AMBULATED TO COMMODE VIA WALKER AND 2 ASSIST. PT HAD TROUBLES AMBULATING BACK TO BED, I RECOMMENED TO THE PT USING A BEDPAN NEXT TIME IF SHE NEEDS TO HAVE A BM. PT HAD A SMALL AMOUNT OF VAGINAL BLEEDING NOTICED AFTER AMBULATING BACK TO BED. PT'S DR NOTIFIED OF THE VAGINAL BLEEDING. DR. STATED TO KEEP ASSESSING TO SEE IF THERE IS RE-OCCURRENT VAGINAL BLEEDING. PT STATED SHE HAD A RANGE OF 7-10 PAIN ON HER LLE. PT RECIEVED ANALGESICS FOR PAIN AND A LIDOCAINE PATCH. PT STATED HER PAIN DECREASED AFTER RECIEVING ANALGESICS. PT RECIEVED A CT SCAN OF HER HEAD TO SEE IF THERE IS SOMETHING IMPACTING HER ABILITY TO EAT. RESULTS ARE NOT BACK. PT'S BP ELEVATED IN THE MORNING WITH A SYSTOLIC OF 201. PT RECIEVED PRN HYDRALIZINE. RECHECKED THE BP AFTER HYDRALIZINE, THE SYSTOLIC DROPPED TO A STABLE LEVEL. ENCOURAGING PT TO EAT AND DRINK FLUIDS. ASSESSING FOR AN INCREASE IN URINE OUTPUT. PT LAYING COMFORTABLE IN BED.
[2018-11-05 20:15] VITALS: BP 152/48
[2018-11-06] VITALS (7 sets, daily range): BP systolic 171–183; BP diastolic 29–60
--- NOTE | 2018-11-06 03:10 | NUR ---
ASSUMED CARE OF PATIENT AT 1900. BP REMAINS ELEVATED, TREATED PER EMAR. RESTING IN BED. SCANT AMOUNT OF BLOOD ON SHEET, UNABLE TO DETERMINE SOURCE (VAGINAL OR RECTAL). DOES NOT APPEAR TO BE UNCOMFORTABLE. HEPARIN GTT INFUSING PER PROTOCOL. ADEQUATE URINE OUTPUT IN [place]TE. WORKING TOWARDS POC GOALS.
[2018-11-06 04:55] LABS: HEMATOCRIT 27.2 % (37.0-47.0); MCH 28.9 pg (26.0-34.0); MCV 87.5 fL (80.0-100.0); RBC 3.11 mil/uL (4.20-5.00); RDW 17.1 % (10.5-14.5); WBC 8.4 thou/uL (4.0-11.0)
[2018-11-06 05:09] LABS: CALCIUM 9.3 mg/dL (8.5-10.1); CREATININE 2.2 mg/dL (0.6-1.0); MAGNESIUM 1.5 mg/dL (1.8-2.4); POTASSIUM 4.3 mmol/L (3.5-5.1)
[2018-11-06 08:37] LABS: INR 2.7; PROTIME 27.7 Seconds (9.3-11.4)
--- NOTE | 2018-11-06 14:39 | NUR ---
spoke with dtr re: recommendation of post acute care. Discussed post acute [facility] contracted facilities. Family/patient has been reluctanct in past for post acute care. Dtr agreeable at this time. She plans to review list and discuss with sister. plan referral to facility in am
--- NOTE | 2018-11-06 16:43 | NUR ---
PT CARE ASSUMED APPROX 0700. PT ALERT AND ORIENTED X3-4. DENIES SOA. REPORTS NECK PAIN 10/04. TYLENOL AND LIDOCAINE PATCH MANAGING PAIN PER PT REPORT. BP ELEVATED. ALL DRS ARE AWARE. PRN BP MED STOPPED DUE TO LOW DBP. PT UP TO CHAIR FOR BREAKFAST. APPETITE POOR. S/T WORKING WITH PT DURING MEAL TIMES FOR INTAKE ENCOURAGEMENT. NOTED VAGINAL BLEEDING. REFERENCE TEST CLERK, CV AND HOSPITALIST ALL AWARE. HEP GTT STOPPED THIS AM. WARFARIN ON HOLD. TURNING PT Q2 HRS AND PRN. PT'S DAUGHTER TO BEDSIDE INTERMITTENTLY THIS SHIFT. CLLINICAL UPDATE GIVEN. SHE DENIES QUESTIONS OR CONCERNS REGARDING POC. NO DISTRESS NOTED.
[2018-11-07 04:30] VITALS: BP 186/50
[2018-11-07 05:02] LABS: HEMATOCRIT 25.2 % (37.0-47.0); HEMOGLOBIN 8.4 gm/dL (12.0-15.0); MCH 29.3 pg (26.0-34.0); MCHC 33.4 g/dL (28.0-37.0); MCV 87.7 fL (80.0-100.0); RBC 2.88 mil/uL (4.20-5.00); RDW 16.6 % (10.5-14.5); WBC 8.9 thou/uL (4.0-11.0)
--- NOTE | 2018-11-07 05:02 | NUR ---
PATIENTS CARES WERE ASSUMED AT SHIFT CHANGE. PATIENT WAS ASSESSED AND MEDS WERE PASSED. HOURLY ROUNDING WAS DONE. THE BED IS IN A LOW AND LOCKED POSITION.
[2018-11-07 05:12] LABS: CREATININE 2.2 mg/dL (0.6-1.0); MAGNESIUM 1.6 mg/dL (1.8-2.4); POTASSIUM 4.3 mmol/L (3.5-5.1)
[2018-11-07 08:00] VITALS: BP 179/55
[2018-11-07 11:06] LABS: INR 3.1
--- NOTE | 2018-11-07 13:07 | PATH ---
[facility] [place], [place] [address] PATHOLOGY RPT PROCEDURE Name: OPAL GARCIA Room #: 202-P [facility] IN M.R.#: [id number] Admission: 11/01/18 Date of : 41 Discharge: Report #: [id number] Path Case #: [id number] [facility] Accession Number: [id number] . 01 Material submitted: . PART A: endocervix - ENDOCERVICAL CURETTINGS PART B: endometrium - ENDOMETRIAL CURETTINGS PART C: endometrium - ENDOMETIRAL POLYPS . 01 Clinical history: . PMB . 02 Diagnosis: A. Endocervix, curettage: - Scant endocervical mucosa with focal squamous metaplasia. . B. Endometrium, curettage: - Secretory phase endometrium. . C. "Endometrial polyps", removal: - Small fragments of secretory endometrium with focal area suggestive of endometrial polyp. . (HERLINDA:claudia; 11/07/2018) QLM/11/07/2018 . 02 Electronically signed: . Nathan Mora MD, Pathologist NPI- [id number] . 01 Gross description: . A. Received in formalin labeled "ChristianOpal, endocervical curettings," is blood-tinged mucoid material containing small fragments of harrington membranous tissue, measuring 0.3 x 0.2 x 0.1 cm in aggregate dimensions. The specimen is filtered and submitted entirely in cassette A1. . B. Received in formalin labeled "Opal Garcia, endometrial curettings," is blood-tinged mucoid material containing small fragments of harrington membranous tissue, measuring 3.9 x 1.9 x 0.5 cm in aggregate dimensions. The specimen is filtered and submitted entirely in cassette B1 and B2. . C. Received in formalin labeled "Opal Garcia, endometrial polyp," and additionally labeled on the requisition as "polyps," are multiple segments of harrington soft tissue measuring 0.7 x 0.4 x 0.1 cm in aggregate dimensions. The specimen is filtered and entirely submitted in cassette C1. (TSD; 11/06/2018) [place] [address] PATHOLOGY RPT PROCEDURE Name: OPAL GARCIA Room #: 202-P [facility] IN M.R.#: [id number] Admission: 11/01/18 Date of : 41 Discharge: Report #: [id number] Path Case #: [id number] TOB/TOB . 02 Pathologist provided ICD-10: N95.0 . 02 CPT . 320990, 213650, 996707 Specimen Comment: A courtesy copy of this report has been sent to Specimen Comment: [phone]. Specimen Comment: Report sent to Performed at: [address], [place] [id number] MD Greg Castillo MD Phone: [phone] Performed at: [address] [id number] MD Sobeida Servin MD Phone: [phone]
[2018-11-07 16:00] VITALS: BP 173/58
--- NOTE | 2018-11-07 17:02 | NUR ---
PT CARE ASSUMED APPROX 0700. PT ALERT AND ORIENTED X2-3. DENIES SOA. REPORTED PAIN ONCE THIS AM IN LEFT LEG. PT MEDICATED AND HAS DENIED PAIN SINCE REASSESSMENT AT THAT TIME. BS WNL. FAMILY AT BEDSIDE PERIODICALLY. DENIES QUESTIONS. CONSENT OBTAINED FOR SURGERY THURS. ESCALANTE PATENT. LUZ CARE GIVEN. NO BLEEDING NOTED. APPETITE REMAINS POOR [facility] TURNING PT Q2HRS AND PRN. UP TO BSC WITH MAX ASSIST X1. NO POC CHANGES THIS SHIFT. NO DISTRESS NOTED.
[2018-11-07 19:27] VITALS: BP 178/50
[2018-11-08 04:19] LABS: INR 3.1; PROTIME 31.8 Seconds (9.3-11.4)
[2018-11-08 04:51] VITALS: BP 201/50
[2018-11-08 05:51] LABS: HEMATOCRIT 25.2 % (37.0-47.0); HEMOGLOBIN 8.4 gm/dL (12.0-15.0); MCH 29.1 pg (26.0-34.0); MCHC 33.3 g/dL (28.0-37.0); MCV 87.4 fL (80.0-100.0); RBC 2.89 mil/uL (4.20-5.00); RDW 17.3 % (10.5-14.5); WBC 7.9 thou/uL (4.0-11.0)
[2018-11-08 06:01] LABS: CALCIUM 9.2 mg/dL (8.5-10.1); CREATININE 2.1 mg/dL (0.6-1.0); MAGNESIUM 1.6 mg/dL (1.8-2.4); POTASSIUM 4.3 mmol/L (3.5-5.1)
--- NOTE | 2018-11-08 06:18 | NUR ---
PATIENTS CARE WERE ASSUMED AT SHIFT CHANGE. PATIENT WAS ASSESSED AND MEDS WERE PASSED. HOURLY ROUNDING WAS DONE. PATIENT DID APPER TO SLEEP MOST OF THIS SHIFT. NO REQUEST MADE. THE BED IS IN A LOW AND LOCKED POSITION
[2018-11-08 07:50] VITALS: BP 152/45
[2018-11-08 11:04] VITALS: BP 167/53
--- NOTE | 2018-11-08 11:11 | HC ---
[facility] [address] [place] [address] CONSULTATION Name: RADHAMATEO DANNY Room #: 202-P ADM IN M.R.#: [id number] Admission: 11/01/18 Attend Phys: Sharan Frank MD Discharge: Date of : 41 Report #: [id number] THIS REPORT FOR: //name// CC: FAM unknown Sharan Frank REASON FOR CONSULTATION: Chronic kidney disease. HISTORY OF PRESENT ILLNESS: The patient is known to our service, underwent extensive evaluation for her chronic kidney disease in August of this year. At that time, she had been admitted with recurrent GI bleeding. She has known chronic kidney disease followed in the Nephrology Clinic at [facility]. Baseline creatinine in the range of 2.5. She now has been admitted with vaginal bleeding and has undergone a procedure and had a polyp removed. She is reasonably stable. Her creatinine is reasonably stable at 2.2. 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 FAMILY HISTORY: Negative for renal disease. SOCIAL HISTORY: Lives with her children who help to care for her. MEDICATIONS: Her current medications at the time of admission included carvedilol 25 mg b.i.d., Coumadin, amlodipine 10 mg daily, pantoprazole 40 mg daily, atorvastatin 80 mg daily, sertraline 25 mg daily, hydralazine 50 mg t.i.d., sodium bicarbonate 650 mg t.i.d., allopurinol 100 mg daily. REVIEW OF SYSTEMS: GENERAL: The patient is a somewhat of a poor historian, but is awake, alert and can give some history. EYES: Her vision is reasonably good. ENT: Hearing okay, swallows okay. No mouth sores. ENDOCRINE: Negative for diabetes. RESPIRATORY: Denies shortness of air, pleuritic pain, cough or hemoptysis. CARDIAC: Denying chest pain currently. No leg swelling. GASTROINTESTINAL: Denies nausea, vomiting, diarrhea. GENITOURINARY: Denies dysuria or hematuria. PELVIC: Apparently did have some vaginal bleeding. NEUROLOGIC: Somewhat compromised with organic brain syndrome, but she is oriented to person and place. MUSCULOSKELETAL: She has generalized weakness, gets around with a walker. [facility] [address] [place] [address] CONSULTATION Name: MATEO GARCIA Room #: 202-P [facility] IN M.R.#: [id number] Admission: 11/01/18 Attend Phys: Sharan Frank MD Discharge: Date of : 41 Report #: [id number] PHYSICAL EXAMINATION: GENERAL: This is a reasonably comfortable appearing patient, awake, alert and pleasant. SKIN: Unremarkable. SKELETAL: Well developed, well nourished. HEENT: Extraocular movements are full. Vision is intact. No scleral icterus. Hearing intact. Mucous membranes moist. Tongue, buccal mucosa benign. NECK: Supple, no carotid bruits. CHEST: Clear to auscultation. HEART: Regular with occasional premature beats. ABDOMEN: Soft and nontender. EXTREMITIES: Show no edema. NEUROLOGIC: Shows weakness on the right side. LABORATORY DATA: Hemoglobin is 9.0 after blood transfusions. No recent iron studies are noted. Sodium 136, potassium 4.3, chloride 106, bicarbonate 16, creatinine 2.2, BUN 24. ASSESSMENT AND PLAN: 1. Chronic kidney disease. She has chronic kidney disease, likely hypertensive nephrosclerosis, longstanding and stable. We had extensive discussions with the family during her last admission at which time it was firmly impressed upon us that dialysis would not be a consideration for this patient, chronic conservative care is indicated and she has actually been rather stable in that regard. 2. Metabolic acidosis. For some reason, she has not been put back on her chronic oral bicarbonate therapy and we will re-add that. 3. Vaginal bleeding. 4. Recent gastrointestinal bleeding. 5. Sick sinus syndrome with pacemaker. 6. History of congestive heart failure with previous mitral valve replacement, on anticoagulation. 7. Longstanding hypertension, reasonably well controlled. DICTATION ENDS HERE <ELECTRONICALLY SIGNED> By: Saleem Dawson MD 11/08/18 [id number] Saleem Dawson MD /nt
--- NOTE | 2018-11-08 16:38 | NUR ---
ASSESSMENT CHARTED. PT ALERT AND ORIENTED WITH FORGETFULNESS. BP MEDS GIVEN ORDERED. LIDOCAIN PATCH APPLIED OF THE LEFT LEG. POOR APPETITE. NPO AFTER MIDNIGHT FOR PROCEDURE IN AM. WILL CONTINUE TO MONITOR.
[2018-11-08 20:35] VITALS: BP 168/43
[2018-11-09] VITALS (15 sets, daily range): BP systolic 127–177; BP diastolic 28–82
[2018-11-09 05:35] LABS: HEMATOCRIT 25.2 % (37.0-47.0); HEMOGLOBIN 8.1 gm/dL (12.0-15.0); MCH 28.2 pg (26.0-34.0); MCHC 32.2 g/dL (28.0-37.0); MCV 87.6 fL (80.0-100.0); RBC 2.87 mil/uL (4.20-5.00); RDW 16.9 % (10.5-14.5); WBC 7.1 thou/uL (4.0-11.0)
[2018-11-09 05:49] LABS: CREATININE 2.3 mg/dL (0.6-1.0); MAGNESIUM 1.4 mg/dL (1.8-2.4); POTASSIUM 4.3 mmol/L (3.5-5.1)
--- NOTE | 2018-11-09 05:50 | NUR ---
PATIENTS CARES WERE ASSUMED AT SHIFT CHANGE. PATIENT WAS ASSESSED AND MEDS ERE PASSED. HOURLY ROUNDING WAS DONE. THE BED IS IN A LOW AND LOCKED POSITION. PATIENT DID SLEEP MOST OF THIS SHIFT.
--- NOTE | 2018-11-09 08:06 | NUR ---
ASSUMED PT CARE AT 0700. PT A&O X4. ASSESSMENT CHARTED. FALL PRECAUTIONS IN PLACE. PT LEFT FLOOR AT 0750 FOR SURGERY. TRANSPORT PROVIDED WITH TECH AND MYSELF. PT'S VITAL SIGNS ARE STABLE. PT'S BLOOD SUGAR IS STABLE. PT STATED SHE HAD PAIN IN HER NECK AND LEG 10/10. LIDOCAINE PATCHES APPLIED TO NECK AND LLE. PRE-PROCEDURE CHECKLIST COMPLETED.
[2018-11-09 12:30] LABS: URINE BILIRUBIN NEGATIVE (Negative); URINE BLOOD NEGATIVE (Negative); URINE CLARITY CLOUDY; URINE COLOR YELLOW; URINE GLUCOSE-RANDOM* NEGATIVE (Negative); URINE KETONES NEGATIVE (Negative); URINE LEUKOCYTES-REFLEX 3+ (Negative); URINE NITRITE-REFLEX NEGATIVE (Negative); URINE PROTEIN (DIPSTICK) 2+ (Negative); URINE SPECIFIC GRAVITY 1.015 (1.005-1.035); URINE UROBILINOGEN 0.2 E.U./dl (0.2-1.0)
[2018-11-09 12:31] LABS: INR 2.5; PROTIME 26.3 Seconds (9.3-11.4)
[2018-11-09 12:38] LABS: BACTERIA-REFLEX >30 Many /HPF (None Seen); CASTS None Seen /LPF (None Seen); CRYSTALS None Seen /LPF (None Seen); SQUAMOUS 0-3 Few /LPF (0-3); URINE RBC 0-2 Rare /HPF (0-2); URINE WBC-REFLEX >25 Many /HPF (0-5)
--- NOTE | 2018-11-09 18:10 | NUR ---
PT BACK ON UNIT FROM SURGERY AT 1055. PT A&O X4. PT STATES SHE IS IN ZERO PAIN OUT OF TEN. PT HAS BEEN SLEEPING MOST OF THE DAY SINCE SHE HAS RETURNED TO THE UNIT. PT STATED SHE DID NOT SLEEP WELL LAST NIGHT. ASSESSMENT CHARTED. PT'S PAD COUNT IS ONE. THERE HAS BEEN ZERO DRAINAGE COMING FROM THE VANGINAL AREA AND ZERO BLOOD. PT RECIVED A U/A TODAY DUE TO FOUL SMELLING URINE. AFTER PT'S U/A CAME BACK, SHE WAS PRESCRIBED AN ANTIBIOTIC. ANTIBIOTIC STARTED AND COMPLETED. PT HAS NOT HAD A LARGE APPETITE OR THIRST. THROUGHOUT THE SHIFT, I HAVE ENCOURGAED THE PT TO EAT AND DRINK. PT HAS BEEN IN BED THE WHOLE DAY AND HAS BEEN TURNED THROUGHOUT THE SHIFT. PT'S DIET RESUMED BACK TO MECHANICAL SOFT- CHOPPED AFTER RETURNING FROM SURGERY. SEE VITAL SIGNS CCU FOR POST-OPERATIVE VITAL SIGNS. PT LAYING COMFORTABLE IN BED.
[2018-11-10 04:09] VITALS: BP 155/56
--- NOTE | 2018-11-10 05:01 | NUR ---
ASSUMED PT CARE AT 1900. PT A/OX4, VITAL SIGNS STABLE, ASSESSMENT CHARTED. NO COMPLAINTS OF PAIN. NO COMPLAINTS OF SOB. NO ACTIVE BLEEDING NOTED ON PAD. PAD CHANGED AT START OF SHIFT. SCANT PINK DISCHARGED NOTED AND DOCUMENTED. J2NDUEL, FALL PRECAUTIONS MAINTAINED. RESTED WELL THROUGH THE NIGHT. PROGRESSING TOWARD PLAN OF CARE. WILL CONTINUE TO MONITOR.
[2018-11-10 05:19] LABS: HEMATOCRIT 25.5 % (37.0-47.0); HEMOGLOBIN 8.4 gm/dL (12.0-15.0); MCH 28.9 pg (26.0-34.0); MCV 87.5 fL (80.0-100.0); RBC 2.91 mil/uL (4.20-5.00); RDW 16.9 % (10.5-14.5); WBC 6.2 thou/uL (4.0-11.0)
[2018-11-10 05:27] LABS: CALCIUM 8.8 mg/dL (8.5-10.1); CREATININE 2.7 mg/dL (0.6-1.0); MAGNESIUM 2.2 mg/dL (1.8-2.4); POTASSIUM 5.2 mmol/L (3.5-5.1)
[2018-11-10 07:52] VITALS: BP 150/49
[2018-11-10 09:49] LABS: INR 3.2; PROTIME 32.9 Seconds (9.3-11.4)
[2018-11-10] MEDS ORDERED: FLOMAX0.4 MG PO (10:35)
[2018-11-10 11:54] VITALS: BP 153/46
[2018-11-10 14:52] VITALS: BP 186/78
--- NOTE | 2018-11-10 14:52 | NUR ---
Dc planning visit with with the pt's dtr Martha via phone. Pt is tired today and not interested in much activity and poor po intake. Family has discussed SNF with her and looked at a listing but they have since decided she would rather go directly home. They would like to use [facility] again as they have had them several times in the past. [facility] alerted to wkend dc. Weekend staff will need to fax orders to [phone] and call the oncall nurse to confirm pt's dc.
[2018-11-10 16:13] VITALS: BP 167/50
--- NOTE | 2018-11-10 17:48 | NUR ---
ASSUMED PT CARE AT 0700. PT A&O X4. ASSESSMENT CHARTED. FALL PRECAUTIONS IN PLACE. PT'S VITAL SIGNS ARE STABLE. PT'S BLOOD SUGARS ARE STABLE. PT STATED HER PAIN IN HER NECK AND LEG WERE A 8-10/10. PT RECIEVED ANALGESICS AND LIDOCAINE PATCHES. BOTH HELPED DECREASE PAIN. PT'S VAGINAL AREA ONLY HAD SCANT, DRIED, BROWN BLOOD. PT'S PAD COUNT IS 3. PT HAS A DECREASED APPETITIE AND THIRST. PT IS OLIGURIC. PT HAD A LOT OF ENERGY IN THE MORNING. FROM EARLY AFTEROON, TO NOW, THE PATIENT HAS BEEN SLEEPING. FAMILY MEMBERS VISITED AND WERE EDUCATED ABOUT THE PT'S STATUS. THE FAMILY STATED THEY UNDERSTOOD THE EDUCATION AND DID NOT HAVE FURTHER QUESTIONS. PT STARTED FLUIDS DUE TO ELECTROLYTE IMALANCES AND DECREASED INTAKE. DR. HUERTAS STATED PT CAN HOPEFULLY GO HOME TOMORROW ONCE ELECTROLYTE LEVELS ARE IMPROVED. PT'S IV IN RIGHT AC INFILTRATED AND DC. NEW IV INSERTED IN RIGHT FOREARM. NEW IV IS CLEAN, DRY, INTACT, AND PATENT. PT SLEEPING COMFORTABLY IN BED.
[2018-11-10 20:41] VITALS: BP 207/45
[2018-11-11 04:21] VITALS: BP 154/44
--- NOTE | 2018-11-11 04:25 | NUR ---
A/O X 4.DENIES PAIN AND SOB.NO BLOODY STOOLS NOR VAGINAL BLEEDING NOTED THIS SHIFT.REPOSITIONED Q2 HOURS.BLOOD GLUCOSE 94 AT BEDTIME.BP WAS ELEVATED.SCHEDULED BP MED GIVEN EARLY.ESCALANTE TO DD.NS AT 100 ML/HR.NO CONCERNS.WILL MONITOR AND CONTINUE POC.
[2018-11-11 06:22] LABS: ALBUMIN 1.8 g/dL (3.4-5.0); CALCIUM 8.4 mg/dL (8.5-10.1); CREATININE 2.7 mg/dL (0.6-1.0); MAGNESIUM 2.1 mg/dL (1.8-2.4); PHOSPHORUS 2.7 mg/dL (2.5-4.9); POTASSIUM 5.2 mmol/L (3.5-5.1)
[2018-11-11 07:25] VITALS: BP 180/63
[2018-11-11 09:48] LABS: INR 2.9; PROTIME 30.3 Seconds (9.3-11.4)
[2018-11-11 11:35] VITALS: BP 171/67
[2018-11-11] MEDS ORDERED: COUMADIN 2 MG TA2 M1 PO (12:05)
--- NOTE | 2018-11-11 14:39 | NUR ---
PATIENT CARE ASSUMED AND ASSESSMENT CHARTED, ESCALANTE CATHETER DC'D, PATIENT TOLERATED WELL, PATIENT DISCHARGED TO HOME, PRESCRIPTION AND DISCHARGED INSTRUCTIONS GIVEN TO DAUGHTER, DAUGHTER STATED UNDERSTANDING. HH ORDERS FAXED TO [facility].
== END 2018-11-11 13:45 | disposition home health service (06) | DRG 742 ==
LOC: ER 13:22 → 2N 16:59 → EROBS 16:59 → 2N 18:01
PROVIDERS: Anesthesiology; Hospitalist; Internal Medicine Cardiovascular Disease; Internal Medicine Gastroenterology; Internal Medicine Nephrology; Nurse Practitioner; Physician Assistant; ADMIT Internal Medicine
PROC: 30233N1 Transfusion of Nonautologous Red Blood Cells into Peripheral Vein, Percutaneous Approach (ICD-10-PCS; principal; 2018-11-02)
PROC: 0DJ08ZZ Inspection of Upper Intestinal Tract, Via Natural or Artificial Opening Endoscopic (ICD-10-PCS; principal; 2018-11-02)
PROC: 0U5B8ZZ Destruction of Endometrium, Via Natural or Artificial Opening Endoscopic (ICD-10-PCS; 2018-11-03)
PROC: 0UDB8ZZ Extraction of Endometrium, Via Natural or Artificial Opening Endoscopic (ICD-10-PCS; 2018-11-03)
PROC: 0U5B8ZZ Destruction of Endometrium, Via Natural or Artificial Opening Endoscopic (ICD-10-PCS; 2018-11-09)
DX: N93.9 Abnormal uterine and vaginal bleeding, unspecified (principal); K92.2 Gastrointestinal hemorrhage, unspecified; E46 Unspecified protein-calorie malnutrition; N17.9 Acute kidney failure, unspecified; D62 Acute posthemorrhagic anemia; E87.2 Acidosis; I38 Endocarditis, valve unspecified; I50.30 Unspecified diastolic (congestive) heart failure; N39.0 Urinary tract infection, site not specified; I69.351 Hemiplegia and hemiparesis following cerebral infarction affecting right dominant side; I13.0 Hypertensive heart and chronic kidney disease with heart failure and stage 1 through stage 4 chronic kidney disease, or unspecified chronic kidney disease; N95.0 Postmenopausal bleeding; E78.5 Hyperlipidemia, unspecified; M10.9 Gout, unspecified; N18.9 Chronic kidney disease, unspecified; F01.50 Vascular dementia, unspecified severity, without behavioral disturbance, psychotic disturbance, mood disturbance, and anxiety; I49.5 Sick sinus syndrome; F09 Unspecified mental disorder due to known physiological condition; I25.10 Atherosclerotic heart disease of native coronary artery without angina pectoris; E87.70 Fluid overload, unspecified; M48.02 Spinal stenosis, cervical region; N84.0 Polyp of corpus uteri; K21.9 Gastro-esophageal reflux disease without esophagitis; R19.6 Halitosis; Z79.82 Long term (current) use of aspirin; Z95.2 Presence of prosthetic heart valve; Z95.0 Presence of cardiac pacemaker; Z90.49 Acquired absence of other specified parts of digestive tract; Z88.6 Allergy status to analgesic agent; Z95.1 Presence of aortocoronary bypass graft; Z68.22 Body mass index [BMI] 22.0-22.9, adult; Z86.010 Personal history of colon polyps; Z79.01 Long term (current) use of anticoagulants; I25.2 Old myocardial infarction; Z79.899 Other long term (current) drug therapy
CPT/HCPCS: 10081; 10194; 50010; 50101; 50203; 54171; 54172; 54173; 62110; 62900; 70005